=== PATIENT | female | born 1965 | race African-American/Black ===

== ENCOUNTER 2018-11-21 09:07 | Emergency (ER) | payer MEDICAID ==
[~2018-11-21] VITALS: Ht 165.1 cm; Wt 76.7 kg
[2018-11-21 09:28] VITALS: BP 143/85
[2018-11-21] MEDS ORDERED: methylPREDNISolone SOD SUCC 125 MG/2 ML VL IM ONE (10:30)
[2018-11-21] MEDS ORDERED: IPRATROPIUM BROM 0.5 MG/2.5ML INH SOL NEB ONE (10:30)
[2018-11-21] MEDS ORDERED: ALBUTEROL SULF 2.5 MG/0.5ML(0.5%) NEB SOLN NEB ONE (10:30)
== END 2018-11-21 11:28 | disposition home or self-care (01) ==
LOC: ER 09:07
DX: J45.901 Unspecified asthma with (acute) exacerbation (principal); Z76.0 Encounter for issue of repeat prescription
CPT/HCPCS: 71046; 94640; 96372; 99283; J2930; J7611; J7644

== ENCOUNTER 2018-11-30 07:19 | Emergency (ER) | payer MEDICAID ==
[~2018-11-30] VITALS: Ht 165.1 cm; Wt 77.1 kg
[2018-11-30 08:34] VITALS: BP 138/47
[2018-11-30] MEDS ORDERED: methylPREDNISolone SOD SUCC 125 MG/2 ML VL IV ONE (08:45)
[2018-11-30] MEDS ORDERED: IPRATROPIUM BROM 0.5 MG/2.5ML INH SOL NEB ONE (08:45)
[2018-11-30] MEDS ORDERED: ALBUTEROL SULF 2.5 MG/0.5ML(0.5%) NEB SOLN NEB ONE (08:45)
[2018-11-30] MEDS ORDERED: AZITHROMYCIN 500MG/ 250ML 250 ML IV ONE (08:45)
[2018-11-30 09:21] LABS: Urine Bacteria FEW /hpf (None Seen); Urine Blood Negative /uL (Negative); Urine Specific Gravity 1.014 (1.001-1.035); Urine WBC 1 /hpf (0 - 5)
[2018-11-30 09:21] LABS: Basophils # (auto) 0.1 uL; Basophils % (auto) 1.2 % (0.0-2.0); Eosinophils # (auto) 0.6 uL; Eosinophils % (auto) 7.5 % (0.0-7.0); Hematocrit 37.4 % (36.0-46.0); Hemoglobin 12.3 g/dL (12.2-16.2); Lymphocytes # (auto) 1.9 uL; Lymphocytes % (auto) 25.8 % (10.0-50.0); Mean Corpuscular Hemoglobin 28.3 pg (28.0-32.0); Mean Corpuscular Volume 85.9 fL (80.0-100.0); Monocytes # (auto) 0.5 uL; Monocytes % (auto) 6.8 % (0.0-12.0); Neutrophils # (auto) 4.3 uL; Neutrophils % (auto) 58.7 % (37.0-80.0); Nucleated Red Blood Cells % 0.1 %; Platelet Count (auto) 245 10^3/uL (140-450); Red Blood Cells 4.35 10^6/uL (4.0-5.20); Red Cell Distribution Width 17.1 % (11.8-14.3); White Blood Cell 7.4 10^3/uL (4.4-10.8)
[2018-11-30 09:36] LABS: Albumin 3.1 g/dL (3.4-5.0); Anion Gap 4 (5-15); Blood Urea Nitrogen 10 mg/dL (7-18); Calcium 8.7 mg/dL (8.5-10.1); Carbon Dioxide 32 mmol/L (21-32); Chloride 106 mmol/L (98-107); Glucose 93 mg/dL (74-106); Magnesium 2.3 mg/dL (1.6-2.6); Potassium 3.7 mmol/L (3.5-5.1); Sodium 142 mmol/L (136-145)
[2018-11-30 09:42] LABS: Alanine Aminotransferase 15 U/L (13-56); Alkaline Phosphatase 49 U/L (45-117); Aspartate Aminotransferase 10 U/L (15-37); BUN/Creatinine Ratio 11.6; Bilirubin, Total 0.3 mg/dL (0.2-1.0); GFR African American > 60 mL/min; GFR Non-African American > 60 mL/min; Total Protein 6.8 g/dL (6.4-8.2)
== END 2018-11-30 11:09 | disposition home or self-care (01) ==
LOC: ER 07:19
DX: J45.901 Unspecified asthma with (acute) exacerbation (principal); J20.9 Acute bronchitis, unspecified; E46 Unspecified protein-calorie malnutrition; Z68.28 Body mass index [BMI] 28.0-28.9, adult; Z90.49 Acquired absence of other specified parts of digestive tract
CPT/HCPCS: 36415; 71046; 80053; 81001; 83735; 84484; 85025; 94640; 94761; 96365; 96366; 96375; 99284; J0456; J2930; J7030; J7611; J7644

== ENCOUNTER 2018-12-05 20:43 | Emergency (ER) | payer MEDICAID ==
[~2018-12-05] VITALS: Ht 165.1 cm; Wt 77.1 kg
[2018-12-05 20:50] VITALS: BP 150/77
[2018-12-05 21:27] LABS: Basophils # (auto) 0.1 uL; Basophils % (auto) 0.5 % (0.0-2.0); Eosinophils # (auto) 0 uL; Eosinophils % (auto) 0.1 % (0.0-7.0); Hematocrit 39.8 % (36.0-46.0); Hemoglobin 12.9 g/dL (12.2-16.2); Lymphocytes # (auto) 2.4 uL; Lymphocytes % (auto) 15.2 % (10.0-50.0); Mean Corpuscular Hemoglobin 27.7 pg (28.0-32.0); Mean Corpuscular Hgb Conc. 32.3 g/dL (32.0-36.0); Mean Corpuscular Volume 85.7 fL (80.0-100.0); Monocytes # (auto) 0.6 uL; Monocytes % (auto) 3.8 % (0.0-12.0); Neutrophils # (auto) 12.7 uL; Neutrophils % (auto) 80.4 % (37.0-80.0); Nucleated Red Blood Cells % 0.1 %; Platelet Count (auto) 277 10^3/uL (140-450); Red Blood Cells 4.64 10^6/uL (4.0-5.20); Red Cell Distribution Width 17.5 % (11.8-14.3); White Blood Cell 15.8 10^3/uL (4.4-10.8)
[2018-12-05 21:39] LABS: Albumin 3.6 g/dL (3.4-5.0); Calcium 9.1 mg/dL (8.5-10.1); Potassium 3.6 mmol/L (3.5-5.1)
[2018-12-05 21:42] LABS: BUN/Creatinine Ratio 15.7; Bilirubin, Total 0.3 mg/dL (0.2-1.0)
[2018-12-05] MEDS ORDERED: IPRATROPIUM BROM 0.5 MG/2.5ML INH SOL NEB ONE (22:15)
[2018-12-05] MEDS ORDERED: cefTRIAXone SOD 1,000 MG VL IM ONE (22:15)
[2018-12-05] MEDS ORDERED: ALBUTEROL SULF 2.5 MG/0.5ML(0.5%) NEB SOLN NEB ONE (22:15)
[2018-12-05] MEDS ORDERED: methylPREDNISolone SOD SUCC 125 MG/2 ML VL IM ONE (22:15)
== END 2018-12-05 23:09 | disposition home or self-care (01) ==
LOC: ER 20:49
DX: J45.909 Unspecified asthma, uncomplicated (principal); J02.9 Acute pharyngitis, unspecified; R51 Headache
CPT/HCPCS: 36415; 71046; 80053; 85025; 94640; 96372; 99284; J0696; J2930; J7611; J7644

== ENCOUNTER 2018-12-19 19:31 | Emergency (ER) | payer MEDICAID ==
[~2018-12-19] VITALS: Ht 165.1 cm; Wt 77.1 kg
[2018-12-19] MEDS ORDERED: ALBUTEROL SULF 2.5 MG/0.5ML(0.5%) NEB SOLN NEB ONE (20:00)
[2018-12-19] MEDS ORDERED: IPRATROPIUM BROM 0.5 MG/2.5ML INH SOL NEB ONE (20:00)
[2018-12-19] MEDS ORDERED: ALBUTEROL SULF 2.5 MG/0.5ML(0.5%) NEB SOLN ONE (20:26)
[2018-12-19] MEDS ORDERED: IPRATROPIUM BROM 0.5 MG/2.5ML INH SOL HHN ONE (20:30)
[2018-12-19] MEDS ORDERED: SODIUM CHLORIDE 0.9% 500 ML IV ONE (20:30)
[2018-12-19] MEDS ORDERED: ALBUTEROL SULF 2.5 MG/0.5ML(0.5%) NEB SOLN HHN ONE (20:30)
[2018-12-19] MEDS ORDERED: methylPREDNISolone SOD SUCC 125 MG/2 ML VL IV ONE (20:30)
[2018-12-19 21:24] LABS: Basophils # (auto) 0 uL; Basophils % (auto) 0.4 % (0.0-2.0); Eosinophils # (auto) 0.8 uL; Eosinophils % (auto) 7.4 % (0.0-7.0); Hematocrit 39.8 % (36.0-46.0); Hemoglobin 12.3 g/dL (12.2-16.2); Lymphocytes # (auto) 3.8 uL; Lymphocytes % (auto) 37.6 % (10.0-50.0); Mean Corpuscular Hemoglobin 27.8 pg (28.0-32.0); Mean Corpuscular Hgb Conc. 30.9 g/dL (32.0-36.0); Monocytes # (auto) 0.6 uL; Monocytes % (auto) 5.5 % (0.0-12.0); Neutrophils % (auto) 49.1 % (37.0-80.0); Nucleated Red Blood Cells % 0.1 %; Platelet Count (auto) 280 10^3/uL (140-450); Red Blood Cells 4.43 10^6/uL (4.0-5.20); Red Cell Distribution Width 18.6 % (11.8-14.3); White Blood Cell 10.2 10^3/uL (4.4-10.8)
[2018-12-19 21:29] LABS: Albumin 3.4 g/dL (3.4-5.0); BUN/Creatinine Ratio 13.3; Calcium 8.8 mg/dL (8.5-10.1); Potassium 4.1 mmol/L (3.5-5.1)
[2018-12-19 21:32] LABS: Bilirubin, Total 0.4 mg/dL (0.2-1.0); Total Protein 7.2 g/dL (6.4-8.2)
[2018-12-19 22:54] VITALS: BP 142/70
== END 2018-12-20 00:20 | disposition home or self-care (01) ==
LOC: ER 19:33
DX: J45.901 Unspecified asthma with (acute) exacerbation (principal); Z90.89 Acquired absence of other organs
CPT/HCPCS: 36415; 71046; 80053; 85025; 93005; 94640; 94761; 96374; 99284; J2930; J7611; J7644

== ENCOUNTER 2018-12-26 16:49 | Emergency (ER) | payer MEDICAID ==
[~2018-12-26] VITALS: Ht 165.1 cm; Wt 77.1 kg
[2018-12-26] MEDS ORDERED: methylPREDNISolone SOD SUCC 125 MG/2 ML VL IV ONE (17:15)
[2018-12-26] MEDS ORDERED: ALBUTEROL SULF 2.5 MG/0.5ML(0.5%) NEB SOLN HHN ONE (17:15)
[2018-12-26] MEDS ORDERED: IPRATROPIUM BROM 0.5 MG/2.5ML INH SOL HHN ONE (17:15)
[2018-12-26 17:57] LABS: Basophils # (auto) 0.1 uL; Basophils % (auto) 1.3 % (0.0-2.0); Eosinophils # (auto) 0.5 uL; Eosinophils % (auto) 6.9 % (0.0-7.0); Hematocrit 39.2 % (36.0-46.0); Hemoglobin 12.5 g/dL (12.2-16.2); Lymphocytes # (auto) 2.4 uL; Lymphocytes % (auto) 29.7 % (10.0-50.0); Mean Corpuscular Hemoglobin 27.9 pg (28.0-32.0); Mean Corpuscular Hgb Conc. 31.8 g/dL (32.0-36.0); Mean Corpuscular Volume 87.8 fL (80.0-100.0); Monocytes # (auto) 0.6 uL; Monocytes % (auto) 7.1 % (0.0-12.0); Neutrophils # (auto) 4.4 uL; Platelet Count (auto) 249 10^3/uL (140-450); Red Blood Cells 4.46 10^6/uL (4.0-5.20); Red Cell Distribution Width 18.3 % (11.8-14.3); White Blood Cell 7.9 10^3/uL (4.4-10.8)
[2018-12-26 18:09] LABS: Albumin 3.5 g/dL (3.4-5.0); Anion Gap 6 (5-15); Blood Urea Nitrogen 5 mg/dL (7-18); Calcium 8.7 mg/dL (8.5-10.1); Carbon Dioxide 26 mmol/L (21-32); Chloride 106 mmol/L (98-107); Glucose 80 mg/dL (74-106); Magnesium 2.2 mg/dL (1.6-2.6); Potassium 3.3 mmol/L (3.5-5.1); Sodium 138 mmol/L (136-145)
[2018-12-26 18:16] LABS: Alanine Aminotransferase 18 U/L (13-56); Alkaline Phosphatase 48 U/L (45-117); Aspartate Aminotransferase 13 U/L (15-37); BUN/Creatinine Ratio 6.2; Bilirubin, Total 0.3 mg/dL (0.2-1.0); GFR African American 95 mL/min; GFR Non-African American 79 mL/min; Total Protein 7.5 g/dL (6.4-8.2)
[2018-12-26 19:50] VITALS: BP 140/60
== END 2018-12-26 19:59 | disposition home or self-care (01) ==
LOC: EDBD 16:49 → ER 16:54
DX: J45.909 Unspecified asthma, uncomplicated (principal)
CPT/HCPCS: 36415; 71045; 80053; 83735; 83880; 84484; 85025; 94761; 99284; J7611; J7644

== ENCOUNTER 2018-12-28 04:19 | Inpatient (IN) | payer MEDICAID | END 2018-12-30 16:30 | disposition home or self-care (01) | LOC: ER 04:19 → OVERFLOW 12:15 → WEST WING 17:51 | DX: J45.901 Unspecified asthma with (acute) exacerbation (principal); E44.1 Mild protein-calorie malnutrition; I10 Essential (primary) hypertension ==

== ENCOUNTER 2019-01-31 20:40 | Emergency (ER) | payer MEDICAID ==
[~2019-01-31] VITALS: Ht 165.1 cm; Wt 77.1 kg
[2019-01-31] MEDS ORDERED: IPRATROPIUM BROM 0.5 MG/2.5ML INH SOL NEB ONE (21:00)
[2019-01-31] MEDS ORDERED: ALBUTEROL SULF 2.5 MG/0.5ML(0.5%) NEB SOLN NEB ONE (21:00)
[2019-01-31 21:38] LABS: Hematocrit 38.7 % (36.0-46.0); Hemoglobin 12.4 g/dL (12.2-16.2); Mean Corpuscular Hgb Conc. 32.1 g/dL (32.0-36.0); Mean Corpuscular Volume 87.1 fL (80.0-100.0); Platelet Count (auto) 214 10^3/uL (140-450); Red Blood Cells 4.44 10^6/uL (4.0-5.20); Red Cell Distribution Width 17.1 % (11.8-14.3); White Blood Cell 6.4 10^3/uL (4.4-10.8)
[2019-01-31 21:41] LABS: Basophils % (manual) 0 (0.0-2.0); Blast Cells 0; Metamyelocytes % 0; Myelocytes % 0; Promyelocytes % 0; Reactive Lymphocytes 0
[2019-01-31 21:51] LABS: Alanine Aminotransferase 16 U/L (13-56); Albumin 3.6 g/dL (3.4-5.0); Anion Gap 6 (5-15); Aspartate Aminotransferase 13 U/L (15-37); BUN/Creatinine Ratio 12.5; Blood Urea Nitrogen 12 mg/dL (7-18); Carbon Dioxide 27 mmol/L (21-32); Chloride 110 mmol/L (98-107); GFR African American 78 mL/min; GFR Non-African American 65 mL/min; Glucose 86 mg/dL (74-106); Magnesium 2.2 mg/dL (1.6-2.6); Potassium 3.6 mmol/L (3.5-5.1); Sodium 143 mmol/L (136-145)
[2019-01-31 21:54] LABS: Partial Thromboplastin Time 25.9 sec (23.78-33.04); Prothrombin Time 10.7 sec (9.27-12.13)
[2019-01-31 21:57] LABS: Alkaline Phosphatase 53 U/L (45-117); Bilirubin, Total 0.3 mg/dL (0.2-1.0); Total Protein 7.9 g/dL (6.4-8.2)
[2019-01-31 22:48] LABS: Band Neutrophils % (manual) 2; Eosinophils % (manual) 18 (0-7); Monocytes % (manual) 4 (0-12)
[2019-01-31 22:49] LABS: Lymphocytes % (manual) 38 (10.0-50.0)
[2019-02-01] MEDS ORDERED: IPRATROPIUM BROM 0.5 MG/2.5ML INH SOL NEB ONE ×2 (02:15→06:15)
[2019-02-01] MEDS ORDERED: ALBUTEROL SULF 2.5 MG/0.5ML(0.5%) NEB SOLN NEB ONE ×2 (02:15→06:15)
[2019-02-01] MEDS ORDERED: methylPREDNISolone SOD SUCC 125 MG/2 ML VL IV ONE (04:30)
[2019-02-01 06:00] VITALS: BP 148/98
== END 2019-02-01 05:28 | disposition home or self-care (01) ==
LOC: ER 20:46
DX: J45.901 Unspecified asthma with (acute) exacerbation (principal)
CPT/HCPCS: 36415; 71046; 80053; 83735; 84484; 85007; 85027; 85610; 85730; 93005; 94640; 96374; 99284; J2930; J7611; J7644

== ENCOUNTER 2019-02-09 22:00 | Emergency (ER) | payer MEDICAID ==
[~2019-02-09] VITALS: Ht 165.1 cm; Wt 77.1 kg
[2019-02-09 23:31] LABS: Hematocrit 39.1 % (36.0-46.0); Hemoglobin 12.6 g/dL (12.2-16.2); Mean Corpuscular Hemoglobin 27.8 pg (28.0-32.0); Mean Corpuscular Hgb Conc. 32.2 g/dL (32.0-36.0); Mean Corpuscular Volume 86.2 fL (80.0-100.0); Platelet Count (auto) 290 10^3/uL (140-450); Red Blood Cells 4.54 10^6/uL (4.0-5.20); Red Cell Distribution Width 16.9 % (11.8-14.3); White Blood Cell 6.9 10^3/uL (4.4-10.8)
[2019-02-09 23:32] LABS: Basophils % (manual) 0 (0.0-2.0); Blast Cells 0; Metamyelocytes % 0; Myelocytes % 0; Promyelocytes % 0; Reactive Lymphocytes 0
[2019-02-09] MEDS ORDERED: SODIUM CHLORIDE 0.9% 1,000 ML IV ONE (23:45)
[2019-02-09] MEDS ORDERED: IPRATROPIUM BROM 0.5 MG/2.5ML INH SOL NEB ONE (23:45)
[2019-02-09] MEDS ORDERED: methylPREDNISolone SOD SUCC 125 MG/2 ML VL IV ONE (23:45)
[2019-02-09] MEDS ORDERED: ALBUTEROL SULF 2.5 MG/0.5ML(0.5%) NEB SOLN NEB ONE (23:45)
[2019-02-09] MEDS ORDERED: TERBUTALINE SULFATE 1 MG/ML 1ML VIAL SC ONE (23:45)
[2019-02-09 23:47] LABS: Albumin 3.7 g/dL (3.4-5.0); Anion Gap 7 (5-15); Blood Urea Nitrogen 9 mg/dL (7-18); Carbon Dioxide 29 mmol/L (21-32); Chloride 104 mmol/L (98-107); Glucose 100 mg/dL (74-106); Magnesium 2.3 mg/dL (1.6-2.6); Potassium 3.1 mmol/L (3.5-5.1); Sodium 140 mmol/L (136-145)
[2019-02-09 23:49] LABS: Alanine Aminotransferase 19 U/L (13-56); Aspartate Aminotransferase 11 U/L (15-37); BUN/Creatinine Ratio 9.5; GFR African American 79 mL/min; GFR Non-African American 66 mL/min
[2019-02-09 23:53] LABS: Alkaline Phosphatase 48 U/L (45-117); Bilirubin, Total 0.4 mg/dL (0.2-1.0); Total Protein 7.6 g/dL (6.4-8.2)
[2019-02-10 01:32] LABS: Band Neutrophils % (manual) 1; Eosinophils % (manual) 18 (0-7); Lymphocytes % (manual) 32 (10.0-50.0); Monocytes % (manual) 5 (0-12)
[2019-02-10] MEDS ORDERED: POTASSIUM CHL 10% (20 MEQ/15ML) 15ml ORAL SOLN PO ONE (03:15)
[2019-02-10] MEDS ORDERED: ALBUTEROL SULF 2.5 MG/0.5ML(0.5%) NEB SOLN NEB ONE (03:30)
[2019-02-10] MEDS ORDERED: IPRATROPIUM BROM 0.5 MG/2.5ML INH SOL NEB ONE (03:30)
[2019-02-10 03:35] VITALS: BP 122/71
[2019-02-10 03:39] LABS: Urine Bacteria FEW /hpf (None Seen); Urine Blood Negative /uL (Negative); Urine Mucus FEW (None Seen); Urine Specific Gravity 1.015 (1.001-1.035); Urine WBC 1 /hpf (0 - 5)
[2019-02-10] MEDS ORDERED: POTASSIUM CHL 10% (20 MEQ/15ML) 15ml ORAL SOLN ONE ×2 (03:51→03:53)
== END 2019-02-10 04:34 | disposition home or self-care (01) ==
LOC: ER 22:00
DX: J45.901 Unspecified asthma with (acute) exacerbation (principal)
CPT/HCPCS: 36415; 71045; 80053; 81001; 83735; 84484; 85007; 85027; 93005; 94640; 94761; 96372; 96374; 99284; J2930; J3105; J7030; J7611; J7644

== ENCOUNTER 2019-05-01 07:48 | Emergency (ER) | payer MEDICAID ==
[~2019-05-01] VITALS: Ht 165.1 cm; Wt 83.9 kg
[~2019-05-01 07:48] MED LIST: ALBUAER3 IN
[2019-05-01 08:26] VITALS: BP 128/70
[2019-05-01] MEDS ORDERED: IPRATROPIUM BROM 0.5 MG/2.5ML INH SOL NEB ONE (08:45)
[2019-05-01] MEDS ORDERED: ALBUTEROL SULF 2.5 MG/0.5ML(0.5%) NEB SOLN NEB ONE (08:45)
== END 2019-05-01 09:43 | disposition home or self-care (01) ==
LOC: ER 07:54
DX: R06.02 Shortness of breath (principal)
CPT/HCPCS: 71046; 93005; 94640; 99283; J7611; J7644

== ENCOUNTER 2019-05-08 11:08 | Inpatient (IN) | payer MEDICAID ==
[~2019-05-08] VITALS: Ht 165.1 cm; Wt 90.0 kg
[2019-05-08] MEDS ORDERED: IPRATROPIUM BROM 0.5 MG/2.5ML INH SOL NEB ONE ×2 (11:30→13:15)
[2019-05-08] MEDS ORDERED: ALBUTEROL SULF 2.5 MG/0.5ML(0.5%) NEB SOLN NEB ONE ×2 (11:30→13:15)
[2019-05-08 12:14] LABS: Hematocrit 37.8 % (36.0-46.0); Hemoglobin 12.1 g/dL (12.2-16.2); Mean Corpuscular Hemoglobin 27.2 pg (28.0-32.0); Mean Corpuscular Volume 85.1 fL (80.0-100.0); Platelet Count (auto) 276 10^3/uL (140-450); Red Blood Cells 4.45 10^6/uL (4.0-5.20); Red Cell Distribution Width 17.4 % (11.8-14.3); White Blood Cell 7.2 10^3/uL (4.4-10.8)
[2019-05-08] MEDS ORDERED: methylPREDNISolone SOD SUCC 125 MG/2 ML VL IV ONE (12:15)
[2019-05-08 12:17] LABS: Band Neutrophils % (manual) 0; Basophils % (manual) 0 (0.0-2.0); Blast Cells 0; Metamyelocytes % 0; Myelocytes % 0; Promyelocytes % 0; Reactive Lymphocytes 0
[2019-05-08] MEDS ORDERED: methylPREDNISolone SOD SUCC 125 MG/2 ML VL ONE (12:17)
[2019-05-08 12:42] LABS: Calcium 8.9 mg/dL (8.5-10.1); Chloride 107 mmol/L (98-107); Potassium 3.7 mmol/L (3.5-5.1); Sodium 141 mmol/L (136-145)
[2019-05-08 12:51] LABS: Alanine Aminotransferase 18 U/L (13-56); Albumin 3.5 g/dL (3.4-5.0); Alkaline Phosphatase 46 U/L (45-117); Anion Gap 6 (5-15); Aspartate Aminotransferase 8 U/L (15-37); BUN/Creatinine Ratio 9.9; Bilirubin, Total 0.3 mg/dL (0.2-1.0); Blood Urea Nitrogen 9 mg/dL (7-18); Carbon Dioxide 28 mmol/L (21-32); GFR African American 83 mL/min; GFR Non-African American 69 mL/min; Glucose 86 mg/dL (74-106); Total Protein 7.5 g/dL (6.4-8.2)
[2019-05-08 13:07] LABS: Eosinophils % (manual) 12 (0-7); Lymphocytes % (manual) 22 (10.0-50.0); Monocytes % (manual) 4 (0-12)
[2019-05-08] MEDS ORDERED: AZITHROMYCIN 500MG/ 250ML 250 ML IV ONE (13:15)
[2019-05-08] MEDS ORDERED: cefTRIAXone 1GM/50ML D5W 50 ML IV ONE (13:15)
[2019-05-08] MEDS ORDERED: MORPHINE SULF INJ 2 MG/ML SYRINGE 1ML IV PRN ×2 (14:00)
[2019-05-08] MEDS ORDERED: ACETAMINOPHEN 500 MG TAB PO PRN (14:00)
[2019-05-08] MEDS ORDERED: ONDANSETRON HCL 4 MG/2 ML VIAL IV PRN (14:00)
[2019-05-08] MEDS ORDERED: HYDROcodone-ACET 5/325MG TAB PO PRN (14:00)
[2019-05-08] MEDS ORDERED: NITROGLYCERIN 0.4 MG SL TAB SL PRN (14:00)
[2019-05-08] MEDS ORDERED: FUROSEMIDE 40 MG TAB PO ONE (14:00)
[2019-05-08] MEDS ORDERED: FAMOTIDINE 20 MG TAB PO ONE (14:15)
[2019-05-08 15:01] VITALS: BP 133/75
--- NOTE | 2019-05-08 15:18 | NUR ---
MS admit from ER [facility] admitted to room 246B after SBAR received. Patient oriented to Keesha Cee, primary RN, unit, room, bed, and unit policies regarding patient care and visiting hours. Patient weighed by bed scale and encouraged to call if they need something. All questions and concerns addressed, patient verbalized understanding. Bed locked in the position. Bed rails up x2. Call light in reach.
[2019-05-08] MEDS ORDERED: MONT10TA23 PO (16:49)
[2019-05-08 16:59] VITALS: BP 107/57
[2019-05-08] MEDS: ALBUTEROL SULF 2.5 MG/0.5ML(0.5%) NEB SOLN NEB SCH (18:27)
[2019-05-08] MEDS: IPRATROPIUM BROM 0.5 MG/2.5ML INH SOL NEB SCH (18:27)
[2019-05-08] MEDS: BUDESONIDE (INHALATION) 0.5 MG/2 ML NEB NEB SCH (18:27)
--- NOTE | 2019-05-08 19:00 | NUR ---
OPENING NOTE Received report from day shift RN. Patient is A&O X's 4 with no s/s of distress. Patient reports no SOB or pain at this time. Patient's boyfriend is currently at bedside. Educated patient on POC and to use call light when in need of assistance. Patient verbalized understanding. Bed is in lowest/locked position with side rails up X's 2 and call light is within reach of patient. Will continue to monitor for changes and round hourly/PRN.
--- NOTE | 2019-05-08 19:00 | NUR ---
CLOSING NOTE Patient is awake and alert. No S/S of distress/SOB or pain. Bed locked in the lowest position. Bed rails up x2. Call light in reach. Endorsed care to night nurse.
[2019-05-08 22:00] VITALS: BP 126/69
--- NOTE | 2019-05-09 01:20 | NUR ---
PAGED RT Patient is reporting SOB. O2 is currently at 91% on room air. Some expiratory wheezing heard.
[2019-05-09] MEDS: IPRATROPIUM BROM 0.5 MG/2.5ML INH SOL NEB SCH ×4 (01:24→17:29)
[2019-05-09] MEDS: ALBUTEROL SULF 2.5 MG/0.5ML(0.5%) NEB SOLN NEB SCH ×4 (01:24→17:29)
--- NOTE | 2019-05-09 01:24 | NUR ---
PAGED HOSPITALIST Paged hospitalist for patient's increased SOB.
--- NOTE | 2019-05-09 01:30 | NUR ---
RT AT BEDSIDE Gave breathing treatment. Patient reports feeling much better
--- NOTE | 2019-05-09 04:07 | NUR ---
PAGED HOSPITALIST regarding breathing treatments
[2019-05-09 05:00] VITALS: BP 124/77
--- NOTE | 2019-05-09 05:11 | NUR ---
RECEIVED CALL BACK FROM HOSPITALIST New orders given. Will continue care
[2019-05-09] MEDS: BUDESONIDE (INHALATION) 0.5 MG/2 ML NEB NEB SCH ×2 (06:02→17:29)
--- NOTE | 2019-05-09 06:22 | NUR ---
Respiratory note: PATIENT SEEN FOR SCHEDULED MED-NEB TX AND WAS FOUND ON ROOM AIR WITH SPO2 OF 88%. MED-MEN WAS GIVEN AND PATIENT WAS PLACED ON 2LPM NASAL CANNULA POST TX. SPO2 MAINTAINED AT 94% ON 2LPM NASAL CANNULA. GISSELL WHITING MADE AWARE OF O2 THERAPY CHANGE.
--- NOTE | 2019-05-09 06:40 | NUR ---
RT RT informed me that patient had O2 Sat at 88% on room air. He placed her on 2L N.C after breathing treatment and she is now at 97%. Will continue to monitor.
[2019-05-09 07:06] LABS: Basophils # (auto) 0 uL; Basophils % (auto) 0.2 % (0.0-2.0); Eosinophils # (auto) 0 uL; Hematocrit 36.1 % (36.0-46.0); Hemoglobin 11.9 g/dL (12.2-16.2); Lymphocytes # (auto) 1.2 uL; Lymphocytes % (auto) 11.5 % (10.0-50.0); Mean Corpuscular Hemoglobin 27.7 pg (28.0-32.0); Mean Corpuscular Hgb Conc. 33.1 g/dL (32.0-36.0); Mean Corpuscular Volume 83.7 fL (80.0-100.0); Monocytes # (auto) 0.5 uL; Neutrophils # (auto) 8.7 uL; Neutrophils % (auto) 83.3 % (37.0-80.0); Platelet Count (auto) 301 10^3/uL (140-450); Red Blood Cells 4.31 10^6/uL (4.0-5.20); Red Cell Distribution Width 17.3 % (11.8-14.3); White Blood Cell 10.5 10^3/uL (4.4-10.8)
[2019-05-09 07:22] LABS: Anion Gap 10 (5-15); BUN/Creatinine Ratio 14.3; Blood Urea Nitrogen 13 mg/dL (7-18); Calcium 8.6 mg/dL (8.5-10.1); Carbon Dioxide 24 mmol/L (21-32); Chloride 109 mmol/L (98-107); GFR African American 83 mL/min; GFR Non-African American 69 mL/min; Glucose 125 mg/dL (74-106); Potassium 4.1 mmol/L (3.5-5.1); Sodium 143 mmol/L (136-145)
--- NOTE | 2019-05-09 08:00 | NUR ---
Opening Shift Note Assumed care of patient, awake and alert. No S/S of distress/SOB or pain. Instructed on POC and to call for assist PRN, will continue to monitor for changes Q1hr and PRN.
[2019-05-09 09:00] VITALS: BP 129/70
[2019-05-09] MEDS: methylPREDNISolone SOD SUCC 40 MG/ML VL IV SCH ×2 (10:54→21:19)
[2019-05-09] MEDS: cefTRIAXone 1GM/50ML D5W 50 ML IV SCH (10:55)
[2019-05-09] MEDS: FAMOTIDINE 20 MG TAB PO SCH (10:55)
--- NOTE | 2019-05-09 11:30 | NUR ---
IV removal IV line to right hand DC'd with clean sterile technique, catheter fully intact. Pressure dressing applied to site. Patient tolerated well.
--- NOTE | 2019-05-09 11:35 | NUR ---
IV insertion IV access obtained, via clean sterile technique by inserting 20 gauge catheter at left FA after 1 attempt by student sample checker. IV secured properly. No trauma to site. Patient tolerated well.
[2019-05-09 13:00] VITALS: BP 125/55
[2019-05-09] MEDS: AZITHROMYCIN 500MG/ 250ML 250 ML IV SCH (13:36)
[2019-05-09 16:35] VITALS: BP 112/61
--- NOTE | 2019-05-09 17:28 | NUR ---
RT PAGED Patient requests breathing treatment. RT paged. Patient on O2 via N/C. Call light in reach.
--- NOTE | 2019-05-09 19:13 | NUR ---
Respiratory note: PT NOT IN BED AT THIS TIME, PT USING RESTROOM
--- NOTE | 2019-05-09 20:03 | NUR ---
RECEIVED PT FROM DAY RN POC REVIEWED
[2019-05-09] MEDS: ALBUTEROL SULF 2.5 MG/0.5ML(0.5%) NEB SOLN NEB PRN (21:15)
[2019-05-09] MEDS: IPRATROPIUM BROM 0.5 MG/2.5ML INH SOL NEB PRN (21:15)
[2019-05-09 22:08] VITALS: BP 114/57
[2019-05-10] MEDS: IPRATROPIUM BROM 0.5 MG/2.5ML INH SOL NEB PRN ×2 (03:41→22:05)
[2019-05-10] MEDS: ALBUTEROL SULF 2.5 MG/0.5ML(0.5%) NEB SOLN NEB PRN ×2 (03:41→22:05)
[2019-05-10 05:30] VITALS: BP 155/74
[2019-05-10] MEDS: IPRATROPIUM BROM 0.5 MG/2.5ML INH SOL NEB SCH ×3 (06:37→18:22)
[2019-05-10] MEDS: BUDESONIDE (INHALATION) 0.5 MG/2 ML NEB NEB SCH ×2 (06:37→18:24)
[2019-05-10] MEDS: ALBUTEROL SULF 2.5 MG/0.5ML(0.5%) NEB SOLN NEB SCH ×3 (06:37→18:22)
[2019-05-10 07:07] LABS: Basophils # (auto) 0 uL; Basophils % (auto) 0.1 % (0.0-2.0); Eosinophils # (auto) 0 uL; Hematocrit 34.9 % (36.0-46.0); Hemoglobin 11.3 g/dL (12.2-16.2); Lymphocytes # (auto) 1.2 uL; Mean Corpuscular Hemoglobin 27.6 pg (28.0-32.0); Mean Corpuscular Hgb Conc. 32.6 g/dL (32.0-36.0); Mean Corpuscular Volume 84.6 fL (80.0-100.0); Monocytes # (auto) 0.3 uL; Monocytes % (auto) 2.6 % (0.0-12.0); Neutrophils # (auto) 11.4 uL; Neutrophils % (auto) 88.3 % (37.0-80.0); Platelet Count (auto) 273 10^3/uL (140-450); Red Blood Cells 4.12 10^6/uL (4.0-5.20); Red Cell Distribution Width 17.4 % (11.8-14.3)
[2019-05-10 07:24] LABS: Potassium 4.2 mmol/L (3.5-5.1)
[2019-05-10 07:34] LABS: Albumin 3.1 g/dL (3.4-5.0); Bilirubin, Total 0.1 mg/dL (0.2-1.0); Calcium 8.9 mg/dL (8.5-10.1)
--- NOTE | 2019-05-10 07:35 | NUR ---
report given to am nurse poc reviewed
--- NOTE | 2019-05-10 08:00 | NUR ---
Opening Shift Note Assumed care of patient, awake and alert, sitting up in bed on cell phone. Patient consumed most of breakfast tray. No S/S of distress or pain. Instructed on POC and to call for assist PRN, will continue to monitor for changes Q1hr and PRN.
[2019-05-10 08:58] VITALS: BP 117/55
[2019-05-10] MEDS: FAMOTIDINE 20 MG TAB PO SCH (09:10)
[2019-05-10] MEDS: cefTRIAXone 1GM/50ML D5W 50 ML IV SCH (09:10)
[2019-05-10] MEDS: methylPREDNISolone SOD SUCC 40 MG/ML VL IV SCH ×2 (09:11→21:15)
--- NOTE | 2019-05-10 09:25 | NUR ---
MD JENNIFER bradshaw. Plan of care discussed.
[2019-05-10] MEDS: AZITHROMYCIN 500MG/ 250ML 250 ML IV SCH (10:12)
[2019-05-10 12:52] VITALS: BP 140/67
[2019-05-10 16:51] VITALS: BP 118/65
--- NOTE | 2019-05-10 19:50 | NUR ---
OPENING NOTE ASSUMED PT CARE FROM DAY SHIFT NURSE NEGRITA. PT IS A/OX4 LAYING QUIETLY IN BED WITH NO S/S OF DISTRESS. PT IS SLIGHTLY SOB UPON PROLONGED CONVERSATION. PT IS CURRENTLY ON AND OFF O2 2L NC NEEDED AND PT STATES THAT SHE IS AWARE OF WHEN SHE FEELS SOB AND WHEN TO PLACE IT BACK ON. DISCUSSED POC WITH PT. PT STATES THAT SHE WISHES TO HAVE A PRN BREATHING TREATMENT BEFORE BED TO ENSURE SHE GETS A GOOD NIGHTS REST. SAFETY MEASURES MAINTAINED WITH SIDE RAILS UP, BED IN LOWEST POSITION AND CALL LIGHT WITHIN REACH. WILL CONTINUE TO MONITOR FOR CHANGES Q1HR AND PRN.
[2019-05-10 22:00] VITALS: BP 109/61
--- NOTE | 2019-05-11 02:00 | NUR ---
PT REQUESTED PRN BREATHING TX PT STATED THAT SHE FEELS "PLUGGED" IN REGARD TO HER BREATHING, THEREFORE REQUESTED RT TX. RT PAGED FOR PRN TX.
[2019-05-11] MEDS: IPRATROPIUM BROM 0.5 MG/2.5ML INH SOL NEB PRN ×3 (02:12→23:15)
[2019-05-11] MEDS: ALBUTEROL SULF 2.5 MG/0.5ML(0.5%) NEB SOLN NEB PRN ×3 (02:12→23:15)
[2019-05-11 03:25] VITALS: BP 109/61
[2019-05-11 05:13] VITALS: BP 128/67
[2019-05-11] MEDS: ALBUTEROL SULF 2.5 MG/0.5ML(0.5%) NEB SOLN NEB SCH ×3 (06:27→18:24)
[2019-05-11] MEDS: BUDESONIDE (INHALATION) 0.5 MG/2 ML NEB NEB SCH ×2 (06:27→18:24)
[2019-05-11] MEDS: IPRATROPIUM BROM 0.5 MG/2.5ML INH SOL NEB SCH ×3 (06:27→18:24)
[2019-05-11 06:52] LABS: Potassium 4.5 mmol/L (3.5-5.1)
[2019-05-11 06:55] LABS: Basophils # (auto) 0 uL; Basophils % (auto) 0.2 % (0.0-2.0); Eosinophils # (auto) 0 uL; Eosinophils % (auto) 0.3 % (0.0-7.0); Hematocrit 36.2 % (36.0-46.0); Hemoglobin 11.7 g/dL (12.2-16.2); Lymphocytes % (auto) 6.6 % (10.0-50.0); Mean Corpuscular Hemoglobin 27.5 pg (28.0-32.0); Mean Corpuscular Hgb Conc. 32.3 g/dL (32.0-36.0); Mean Corpuscular Volume 85.1 fL (80.0-100.0); Monocytes # (auto) 0.4 uL; Monocytes % (auto) 2.5 % (0.0-12.0); Neutrophils # (auto) 13.6 uL; Neutrophils % (auto) 90.4 % (37.0-80.0); Nucleated Red Blood Cells % 0.1 %; Platelet Count (auto) 277 10^3/uL (140-450); Red Blood Cells 4.25 10^6/uL (4.0-5.20); Red Cell Distribution Width 17.8 % (11.8-14.3)
[2019-05-11 07:01] LABS: Albumin 3.1 g/dL (3.4-5.0); BUN/Creatinine Ratio 15.6; Bilirubin, Total 0.2 mg/dL (0.2-1.0); Calcium 8.5 mg/dL (8.5-10.1); Total Protein 7.1 g/dL (6.4-8.2)
--- NOTE | 2019-05-11 07:30 | NUR ---
Opening Shift Note Assumed care of patient, resting in bed with eyes closed, respirations even and unlabored. No S/S of distress/SOB or pain. POC board updated, will continue to monitor for changes Q1hr and PRN.
[2019-05-11 09:00] VITALS: BP 115/72
--- NOTE | 2019-05-11 09:15 | NUR ---
BEDSIDE Dr Muñoz at bedside.
[2019-05-11] MEDS: FAMOTIDINE 20 MG TAB PO SCH (09:16)
[2019-05-11] MEDS: methylPREDNISolone SOD SUCC 40 MG/ML VL IV SCH ×2 (09:16→21:51)
[2019-05-11] MEDS: cefTRIAXone 1GM/50ML D5W 50 ML IV SCH (09:17)
--- NOTE | 2019-05-11 11:28 | NUR ---
Nutrition Assessment Notes please see attached link for complete assessment Est. Needs ABW 72 [id number] kcal (23-25 kcal/kgBW), 72-79 gms pro (1.0-1.1 gms/kgBW). Will continue to monitor pertinent labs and reassess nutrient need prn Addendum: 05/11/19 at [address] Amended: Links added.
[2019-05-11 13:00] VITALS: BP 106/59
[2019-05-11] MEDS: AZITHROMYCIN 500MG/ 250ML 250 ML IV SCH (13:52)
--- NOTE | 2019-05-11 14:28 | NUR ---
IV removal IV line to left FA DC'd with clean sterile technique, catheter fully intact. Pressure dressing applied to site. Patient tolerated well. NOTE: IV site became swollen, red, and painful.
--- NOTE | 2019-05-11 16:00 | NUR ---
IV insertion IV access obtained, via clean sterile technique by inserting 22 gauge catheter at the right FA after 1 attempt. IV secured properly. No trauma to site. Patient tolerated well.
[2019-05-11 17:47] VITALS: BP 122/59
--- NOTE | 2019-05-11 19:30 | NUR ---
OPENING NOTE Received report from day shift RN. Patient is A&O X's 4 with no s/s of distress noted. Educated patient on POC and to use call light when in need of assistance. Patient verbalized understanding. Bed is in lowest/locked position with side rails up X's 2 and call light is within reach of patient. Will continue to monitor for changes and round hourly/PRN.
[2019-05-11 21:54] VITALS: BP 110/66
--- NOTE | 2019-05-11 22:58 | NUR ---
PAGED RT Patient requesting breathing treatment. She reports some SOB. No distress noted
--- NOTE | 2019-05-12 04:30 | NUR ---
PAGED RT Paged RT. Patient requesting breathing treatment. She reports some SOB. NO distress is noted. O2 level is at 93% on room air
[2019-05-12] MEDS: IPRATROPIUM BROM 0.5 MG/2.5ML INH SOL NEB PRN ×2 (04:41→22:53)
[2019-05-12] MEDS: ALBUTEROL SULF 2.5 MG/0.5ML(0.5%) NEB SOLN NEB PRN ×2 (04:41→22:53)
[2019-05-12 05:31] VITALS: BP 125/73
[2019-05-12] MEDS: IPRATROPIUM BROM 0.5 MG/2.5ML INH SOL NEB SCH ×3 (06:13→18:46)
[2019-05-12] MEDS: BUDESONIDE (INHALATION) 0.5 MG/2 ML NEB NEB SCH ×2 (06:13→18:46)
[2019-05-12] MEDS: ALBUTEROL SULF 2.5 MG/0.5ML(0.5%) NEB SOLN NEB SCH ×3 (06:13→18:45)
[2019-05-12 06:59] LABS: Basophils # (auto) 0 uL; Basophils % (auto) 0.1 % (0.0-2.0); Eosinophils # (auto) 0 uL; Hematocrit 35.6 % (36.0-46.0); Hemoglobin 11.6 g/dL (12.2-16.2); Lymphocytes # (auto) 1.4 uL; Lymphocytes % (auto) 8.9 % (10.0-50.0); Mean Corpuscular Hemoglobin 27.7 pg (28.0-32.0); Mean Corpuscular Hgb Conc. 32.6 g/dL (32.0-36.0); Mean Corpuscular Volume 84.9 fL (80.0-100.0); Monocytes # (auto) 0.7 uL; Monocytes % (auto) 4.2 % (0.0-12.0); Neutrophils # (auto) 13.8 uL; Neutrophils % (auto) 86.8 % (37.0-80.0); Platelet Count (auto) 249 10^3/uL (140-450); Red Blood Cells 4.19 10^6/uL (4.0-5.20); Red Cell Distribution Width 17.6 % (11.8-14.3)
[2019-05-12 07:10] LABS: Albumin 3.1 g/dL (3.4-5.0); Calcium 8.5 mg/dL (8.5-10.1); Potassium 4.5 mmol/L (3.5-5.1)
[2019-05-12 07:14] LABS: BUN/Creatinine Ratio 15.1; Bilirubin, Total 0.4 mg/dL (0.2-1.0); Total Protein 6.8 g/dL (6.4-8.2)
--- NOTE | 2019-05-12 07:25 | NUR ---
CLOSING NOTE Gave report to day shift RN, Mica. Patient is A&O X's 4 with no s/s of distress. Endorsed care
--- NOTE | 2019-05-12 07:40 | NUR ---
OPENING SHIFT NOTE PATIENT IN BED WITH EYES CLOSED BUT AWAKE COMMUNICATING. PATIENT ALERT AND ORIENTED X4. POC DISCUSSED PATIENT VERBALIZED UNDERSTANDING. BOARD UPDATED. BED IS IN LOWEST LOCKED POSITION CALL LIGHT WITH IN REACH. WILL CONTINUE TO MONITOR
[2019-05-12 08:00] VITALS: BP 132/76
--- NOTE | 2019-05-12 09:40 | NUR ---
HOSPITALIST AT BEDSIDE DR GUTIERREZ AT BEDSIDE. WILL FOLLOW ORDERS INSTRUCTED
[2019-05-12] MEDS: cefTRIAXone 1GM/50ML D5W 50 ML IV SCH (09:57)
[2019-05-12] MEDS: methylPREDNISolone SOD SUCC 40 MG/ML VL IV SCH ×2 (09:58→21:56)
[2019-05-12] MEDS: FAMOTIDINE 20 MG TAB PO SCH (09:58)
[2019-05-12] MEDS: AZITHROMYCIN 500MG/ 250ML 250 ML IV SCH (09:58)
[2019-05-12 12:00] VITALS: BP 119/58
[2019-05-12 16:00] VITALS: BP 132/67
--- NOTE | 2019-05-12 18:57 | NUR ---
END OF SHIFT NOTE PATIENT AWAKE AND ALERT WITH FIANCE AT BEDSIDE. PATIENT DENIES ANY DISTRESS OR SOB AT THIS TIME. BED IS IN LOWEST LOCKED POSITION CALL LIGHT WITHIN REACH ENDORSED CARE TO LIAT BORRERO
[2019-05-12 22:00] VITALS: BP 115/77
--- NOTE | 2019-05-12 22:00 | NUR ---
PAGED RT PATIENT REQUESTING BREATHING TREATMENT BEFORE GOING TO SLEEP
--- NOTE | 2019-05-12 22:51 | NUR ---
RT AT BEDSIDE
--- NOTE | 2019-05-13 04:43 | NUR ---
PAGED RT Patient requesting breathing treatment.
[2019-05-13 05:00] VITALS: BP 118/72
[2019-05-13] MEDS: ALBUTEROL SULF 2.5 MG/0.5ML(0.5%) NEB SOLN NEB SCH ×3 (06:27→18:25)
[2019-05-13] MEDS: BUDESONIDE (INHALATION) 0.5 MG/2 ML NEB NEB SCH ×2 (06:27→18:26)
[2019-05-13] MEDS: IPRATROPIUM BROM 0.5 MG/2.5ML INH SOL NEB SCH ×3 (06:27→18:25)
--- NOTE | 2019-05-13 07:00 | NUR ---
OPENING SHIFT NOTE ASSUMED CARE OF THE PATIENT FROM THE VENDER RN. THE PATIENT IS A&OX4, NO SIGNS OR SYMPTOMS OF DISTRESS. EDUCATED THE PATIENT ON POC AND PATIENT VERBALIZED UNDERSTANDING. THE PATIENT'S CALL LIGHT IS WITHIN REACH AND BED IS IN THE LOWEST, LOCKED POSITION. WILL ROUND HOURLY AND CONTINUE TO MONITOR.
[2019-05-13 08:00] VITALS: BP 131/71
[2019-05-13] MEDS: FAMOTIDINE 20 MG TAB PO SCH (09:48)
[2019-05-13] MEDS: AZITHROMYCIN 500MG/ 250ML 250 ML IV SCH (09:48)
[2019-05-13] MEDS: methylPREDNISolone SOD SUCC 40 MG/ML VL IV SCH ×2 (09:48→21:55)
[2019-05-13] MEDS: cefTRIAXone 1GM/50ML D5W 50 ML IV SCH (09:48)
[2019-05-13 16:00] VITALS: BP 131/69
--- NOTE | 2019-05-13 19:10 | NUR ---
Opening Shift Note Assumed care of patient, awake and alert. No S/S of distress/SOB or pain. Instructed on POC and to call for assist PRN, will continue to monitor for changes Q1hr and PRN. Side rails up x2. Bed locked in lowest position. Call light within reach.
[2019-05-13] MEDS: ALBUTEROL SULF 2.5 MG/0.5ML(0.5%) NEB SOLN NEB PRN (21:57)
[2019-05-13] MEDS: IPRATROPIUM BROM 0.5 MG/2.5ML INH SOL NEB PRN (21:57)
[2019-05-13 22:00] VITALS: BP 120/67
[2019-05-14 00:20] VITALS: BP 120/67
[2019-05-14 05:12] VITALS: BP 111/67
[2019-05-14 06:27] LABS: Hemoglobin 12.1 g/dL (12.2-16.2); Mean Corpuscular Hemoglobin 27.7 pg (28.0-32.0); Mean Corpuscular Hgb Conc. 32.7 g/dL (32.0-36.0); Mean Corpuscular Volume 84.9 fL (80.0-100.0); Platelet Count (auto) 225 10^3/uL (140-450); Red Blood Cells 4.36 10^6/uL (4.0-5.20); Red Cell Distribution Width 17.4 % (11.8-14.3); White Blood Cell 13.5 10^3/uL (4.4-10.8)
--- NOTE | 2019-05-14 07:00 | NUR ---
OPENING SHIFT NOTE ASSUMED CARE OF THE PATIENT FROM THE READING ASSISTANT RN. THE PATIENT IS A&OX4, NO SIGNS OR SYMPTOMS OF DISTRESS. EDUCATED THE PATIENT ON POC AND PATIENT VERBALIZED UNDERSTANDING. THE PATIENT'S CALL LIGHT IS WITHIN REACH AND BED IS IN THE LOWEST, LOCKED POSITION. WILL ROUND HOURLY AND CONTINUE TO MONITOR.
--- NOTE | 2019-05-14 07:08 | NUR ---
Endorsed care to day shift RN. Patient in bed with no signs of distress/sob/pain. Patient had no events of distress throughout the shift.
[2019-05-14 07:11] LABS: Band Neutrophils % (manual) 0; Basophils % (manual) 0 (0.0-2.0); Blast Cells 0; Eosinophils % (manual) 0 (0-7); Metamyelocytes % 0; Myelocytes % 0; Promyelocytes % 0; Reactive Lymphocytes 0
[2019-05-14] MEDS: IPRATROPIUM BROM 0.5 MG/2.5ML INH SOL NEB SCH ×2 (07:22→12:05)
[2019-05-14] MEDS: ALBUTEROL SULF 2.5 MG/0.5ML(0.5%) NEB SOLN NEB SCH ×2 (07:22→12:05)
[2019-05-14] MEDS: BUDESONIDE (INHALATION) 0.5 MG/2 ML NEB NEB SCH (07:22)
[2019-05-14 08:00] VITALS: BP_SYST 128; BP_SYST 131; BP_DIAS 66; BP_DIAS 73
[2019-05-14] MEDS: cefTRIAXone 1GM/50ML D5W 50 ML IV SCH (09:42)
[2019-05-14] MEDS: AZITHROMYCIN 500MG/ 250ML 250 ML IV SCH (09:43)
[2019-05-14] MEDS: FAMOTIDINE 20 MG TAB PO SCH (09:43)
[2019-05-14] MEDS: methylPREDNISolone SOD SUCC 40 MG/ML VL IV SCH (09:43)
[2019-05-14 12:00] VITALS: BP 119/54
[2019-05-14 13:30] LABS: Lymphocytes % (manual) 13 (10.0-50.0); Monocytes % (manual) 1 (0-12)
--- NOTE | 2019-05-14 16:45 | NUR ---
Discharge instructions given as ordered. Encourage to follow up with PMD as instructed. All questions and concerns addressed. Patient verbalized understanding. Medication reconciliation form completed and copy given to patient. Home medications held in Pharmacy returned to patient, and needed vaccines given. IV removed with catheter intact, pressure dressing applied.Patient taken to vehicle via wheelchair with all personal belongings, accompanied by staff and family member. No distress noted at time of departure.
== END 2019-05-14 16:45 | disposition home or self-care (01) | DRG 139 ==
LOC: ER 11:11 → OVERFLOW 11:12 → EAST 15:20
PROVIDERS: ADMIT Nurse Practitioner Acute Care; ATTEND Internal Medicine
DX: J18.1 Lobar pneumonia, unspecified organism (principal); J45.901 Unspecified asthma with (acute) exacerbation; E66.9 Obesity, unspecified; Z98.2 Presence of cerebrospinal fluid drainage device; Z68.33 Body mass index [BMI] 33.0-33.9, adult; Z88.0 Allergy status to penicillin; Z88.8 Allergy status to other drugs, medicaments and biological substances; Z80.1 Family history of malignant neoplasm of trachea, bronchus and lung; Z82.3 Family history of stroke; Z82.49 Family history of ischemic heart disease and other diseases of the circulatory system; Z83.3 Family history of diabetes mellitus; Z90.49 Acquired absence of other specified parts of digestive tract
CPT/HCPCS: 36415; 36600; 71045; 80048; 80053; 82805; 83605; 84484; 85007; 85025; 85027; 87040; 87070; 87205; 93005; 94640; 96365; 96366; 96368; 96375; G0378; J0696

== ENCOUNTER 2019-06-07 22:03 | Inpatient (IN) | payer MEDICAID | END 2019-06-10 13:51 | disposition home or self-care (01) | LOC: TELE 22:04 → ER 22:03 → TELE-WESTW 06-08 16:55 | DX: J18.1 Lobar pneumonia, unspecified organism (principal); I11.0 Hypertensive heart disease with heart failure; J45.901 Unspecified asthma with (acute) exacerbation; E66.9 Obesity, unspecified ==

== ENCOUNTER 2019-06-19 19:33 | Emergency (ER) | payer MEDICAID ==
[~2019-06-19] VITALS: Ht 165.1 cm; Wt 77.1 kg
[~2019-06-19 19:33] MED LIST changes: +IPRIH IN; +MONT10TA23 PO
[2019-06-19] MEDS ORDERED: ALBUTEROL SULF 2.5 MG/0.5ML(0.5%) NEB SOLN HHN STA (19:51)
[2019-06-19] MEDS ORDERED: IPRATROPIUM BROM 0.5 MG/2.5ML INH SOL NEB ONE ×2 (20:00→23:45)
[2019-06-19 22:27] VITALS: BP 126/67
[2019-06-19] MEDS ORDERED: methylPREDNISolone SOD SUCC 125 MG/2 ML VL IM ONE (23:30)
[2019-06-19] MEDS ORDERED: ALBUTEROL SULF 2.5 MG/0.5ML(0.5%) NEB SOLN NEB ONE (23:45)
== END 2019-06-20 00:07 | disposition home or self-care (01) ==
LOC: ER 19:35
DX: J45.901 Unspecified asthma with (acute) exacerbation (principal)
CPT/HCPCS: 94640; 96372; 99284; J2930; J7611; J7644

== ENCOUNTER 2019-06-23 07:30 | Inpatient (IN) | payer MEDICAID ==
[~2019-06-23] VITALS: Ht 165.1 cm; Wt 93.5 kg
[2019-06-23] MEDS ORDERED: SODIUM CHLORIDE 0.9% 500 ML IV ONE (08:00)
[2019-06-23] MEDS ORDERED: ALBUTEROL SULF 2.5 MG/0.5ML(0.5%) NEB SOLN HHN ONE (08:00)
[2019-06-23] MEDS ORDERED: IPRATROPIUM BROM 0.5 MG/2.5ML INH SOL HHN ONE (08:00)
[2019-06-23] MEDS ORDERED: methylPREDNISolone SOD SUCC 125 MG/2 ML VL IV ONE (08:00)
[2019-06-23 08:27] LABS: Basophils # (auto) 0.1 uL; Eosinophils % (auto) 14.3 % (0.0-7.0); Hematocrit 38.8 % (36.0-46.0); Hemoglobin 12.6 g/dL (12.2-16.2); Lymphocytes # (auto) 1.7 uL; Lymphocytes % (auto) 24.2 % (10.0-50.0); Mean Corpuscular Hgb Conc. 32.4 g/dL (32.0-36.0); Mean Corpuscular Volume 86.6 fL (80.0-100.0); Monocytes # (auto) 0.5 uL; Monocytes % (auto) 6.8 % (0.0-12.0); Neutrophils # (auto) 3.7 uL; Neutrophils % (auto) 53.7 % (37.0-80.0); Nucleated Red Blood Cells % 0.1 %; Platelet Count (auto) 268 10^3/uL (140-450); Red Blood Cells 4.48 10^6/uL (4.0-5.20); Red Cell Distribution Width 18.5 % (11.8-14.3); White Blood Cell 6.8 10^3/uL (4.4-10.8)
[2019-06-23 08:48] LABS: Albumin 3.4 g/dL (3.4-5.0); BUN/Creatinine Ratio 9.5; Calcium 8.7 mg/dL (8.5-10.1); Magnesium 2.5 mg/dL (1.6-2.6); Potassium 3.8 mmol/L (3.5-5.1)
[2019-06-23 08:50] LABS: Bilirubin, Total 0.4 mg/dL (0.2-1.0); Total Protein 7.2 g/dL (6.4-8.2)
[2019-06-23] MEDS ORDERED: NITROGLYCERIN 0.4 MG SL TAB SL PRN (09:30)
[2019-06-23] MEDS ORDERED: LACTULOSE 20Gm/30ML SOLN PO PRN (09:30)
[2019-06-23] MEDS ORDERED: TEMAZEPAM 15 MG CAP PO PRN (09:30)
[2019-06-23] MEDS ORDERED: ALBUTEROL SULF 2.5 MG/0.5ML(0.5%) NEB SOLN NEB PRN (09:30)
[2019-06-23] MEDS ORDERED: MORPHINE SULF INJ 2 MG/ML SYRINGE 1ML IV PRN (09:30)
[2019-06-23] MEDS ORDERED: traMADol HCL 50 MG TAB PO PRN (09:30)
[2019-06-23] MEDS ORDERED: PROMETHAZINE HCL 25 MG/ML 1ML IV PRN (09:30)
[2019-06-23] MEDS ORDERED: ACETAMINOPHEN 500 MG TAB PO PRN (09:30)
[2019-06-23] MEDS: PANTOPRAZOLE 40 MG TAB PO SCH (10:05)
[2019-06-23] MEDS: cefTRIAXone 1GM/50ML D5W 50 ML IV SCH (10:05)
[2019-06-23] MEDS: SODIUM CHLORIDE 0.9% 1,000 ML IV SCH ×2 (10:05→22:41)
[2019-06-23] MEDS: ENOXAPARIN SOD 40 MG/0.4 ML SYRINGE SC SCH (10:05)
--- NOTE | 2019-06-23 10:55 | NUR ---
Telemetry admit from ER FRANCOIS LEON admitted to Telemetry unit after SBAR received. Patient oriented to Dale Fraga, primary RN, unit, room, bed, and unit policies regarding patient care and visiting hours. Patient now on continuous telemetry monitoring, tele box # 3 and telemetry reading on arrival to unit is Sinus Rhythm. Patient placed on bedside oxygen at 2L/min, weighed by bedscale and encouraged to call if they need something. All questions and concerns addressed, patient verbalized understanding.
[2019-06-23] MEDS: IPRATROPIUM BROM 0.5 MG/2.5ML INH SOL NEB SCH ×3 (11:39→23:08)
[2019-06-23] MEDS: ALBUTEROL SULF 2.5 MG/0.5ML(0.5%) NEB SOLN NEB SCH ×3 (11:39→23:08)
[2019-06-23 12:02] LABS: Urine WBC None Seen /hpf (0 - 5)
[2019-06-23] MEDS: AZITHROMYCIN 500MG/ 250ML 250 ML IV SCH (12:11)
[2019-06-23] MEDS: methylPREDNISolone SOD SUCC 40 MG/ML VL IV SCH ×3 (12:14→23:02)
[2019-06-23 12:16] LABS: Urine Bacteria NONE SEEN /hpf (None Seen); Urine Blood Negative /uL (Negative); Urine Specific Gravity 1.009 (1.001-1.035)
[2019-06-23 12:41] VITALS: BP 115/64
[2019-06-23 13:48] VITALS: BP 115/64
[2019-06-23 16:43] VITALS: BP 135/55
--- NOTE | 2019-06-23 19:30 | NUR ---
Opening shift note Patient in bed alert and oriented x 4, verbally coherent able to make needs known. Patient denies pain and discomfort at this time. Plan of care discussed, patient verbalized understanding. All needs attended, will continue to monitor.
[2019-06-23 21:47] VITALS: BP 133/61
--- NOTE | 2019-06-24 05:00 | NUR ---
Patient having shortness of breath, paged RT.
--- NOTE | 2019-06-24 05:05 | NUR ---
RT at bedside assessed patient. Breathing tx ongoing
[2019-06-24] MEDS: methylPREDNISolone SOD SUCC 40 MG/ML VL IV SCH ×2 (05:08→12:25)
[2019-06-24 05:26] VITALS: BP 120/65
[2019-06-24] MEDS: ALBUTEROL SULF 2.5 MG/0.5ML(0.5%) NEB SOLN NEB SCH ×5 (05:53→22:39)
[2019-06-24] MEDS: IPRATROPIUM BROM 0.5 MG/2.5ML INH SOL NEB SCH ×2 (05:53→11:15)
--- NOTE | 2019-06-24 07:30 | NUR ---
Opening Shift Note Assumed care of patient, awake and alert. No S/S of distress/SOB or pain. Instructed on POC and to call for assist PRN, will continue to monitor for changes Q1hr and PRN.
[2019-06-24 08:00] VITALS: BP 139/61
[2019-06-24 09:00] VITALS: BP 139/61
[2019-06-24] MEDS: cefTRIAXone 1GM/50ML D5W 50 ML IV SCH (09:27)
[2019-06-24] MEDS: PANTOPRAZOLE 40 MG TAB PO SCH (09:27)
[2019-06-24] MEDS: ENOXAPARIN SOD 40 MG/0.4 ML SYRINGE SC SCH (09:28)
[2019-06-24] MEDS: AZITHROMYCIN 500MG/ 250ML 250 ML IV SCH (11:54)
[2019-06-24] MEDS: SODIUM CHLORIDE 0.9% 1,000 ML IV SCH (12:25)
[2019-06-24 13:00] VITALS: BP 123/60
[2019-06-24] MEDS ORDERED: ALBUTEROL SULF 2.5 MG/0.5ML(0.5%) NEB SOLN NEB ONE (16:30)
[2019-06-24 16:42] VITALS: BP 137/84
[2019-06-24] MEDS ORDERED: ALBUTEROL SULF 2.5 MG/0.5ML(0.5%) NEB SOLN ONE (16:46)
[2019-06-24] MEDS ORDERED: ALBUTEROL SULF 2.5 MG/0.5ML(0.5%) NEB SOLN NEB SCH (18:00)
[2019-06-24 21:00] VITALS: BP 107/58
[2019-06-24] MEDS: methylPREDNISolone SOD SUCC 125 MG/2 ML VL IV SCH (21:15)
[2019-06-25] MEDS: SODIUM CHLORIDE 0.9% 1,000 ML IV SCH ×2 (01:21→15:18)
[2019-06-25] MEDS: ALBUTEROL SULF 2.5 MG/0.5ML(0.5%) NEB SOLN NEB SCH ×6 (01:55→22:22)
[2019-06-25 04:30] VITALS: BP 136/75
[2019-06-25] MEDS: methylPREDNISolone SOD SUCC 125 MG/2 ML VL IV SCH ×3 (06:06→21:49)
--- NOTE | 2019-06-25 08:00 | NUR ---
Opening Shift Note Assumed care of patient, awake and alert. Patient sitting up on the side of the bed. No S/S of distress/SOB or pain. Instructed on POC and to call for assist PRN, will continue to monitor for changes Q1hr and PRN.
[2019-06-25] MEDS: cefTRIAXone 1GM/50ML D5W 50 ML IV SCH (09:34)
[2019-06-25 10:09] VITALS: BP 147/85
[2019-06-25] MEDS: PANTOPRAZOLE 40 MG TAB PO SCH (10:44)
[2019-06-25] MEDS: AZITHROMYCIN 500MG/ 250ML 250 ML IV SCH (10:44)
[2019-06-25] MEDS: ENOXAPARIN SOD 40 MG/0.4 ML SYRINGE SC SCH (10:45)
[2019-06-25 12:59] VITALS: BP 108/53
[2019-06-25 17:08] VITALS: BP 121/73
[2019-06-25 22:00] VITALS: BP 119/62
--- NOTE | 2019-06-25 22:00 | NUR ---
Scheduled medication given. Patient has no complains at this time. Care continued.
--- NOTE | 2019-06-26 | NUR ---
Patient has no complains at this time. Care continued.
[2019-06-26] MEDS: ALBUTEROL SULF 2.5 MG/0.5ML(0.5%) NEB SOLN NEB SCH ×6 (02:10→22:00)
--- NOTE | 2019-06-26 03:15 | NUR ---
Patient called, complained of shortness of breath. Breathing treatment just given an hour ago. Respiratory therapist paged. RT went to patient's room promptly to assess patient. Dr. Church paged regarding patient's condition. Awaiting for call back.
--- NOTE | 2019-06-26 03:30 | NUR ---
Patient still short of breath. Inspiratory wheezing heard. No call back from . Dr. Church repaged. Patient will be monitored closely.
[2019-06-26] MEDS ORDERED: ALBUTEROL SULF 2.5 MG/0.5ML(0.5%) NEB SOLN NEB ONE (03:45)
[2019-06-26] MEDS ORDERED: ALBUTEROL SULF 2.5 MG/0.5ML(0.5%) NEB SOLN ONE (03:45)
--- NOTE | 2019-06-26 03:45 | NUR ---
Still no call back from Dr. Church. Called charge account authorizer to inform her of patient's condition. business analyst advised to repage RT. RT repaged. RT called back promptly, updated with patient's condition. RT advised that he will see patient. RT at bedside. Per RT, he is able to obtain an order of an extra dose of breathing treatment from hospitalist Amol Watts NP. RT at bedside to give patient breathing treatment. Will continue to closely monitor patient.
[2019-06-26] MEDS: SODIUM CHLORIDE 0.9% 1,000 ML IV SCH ×2 (04:01→16:39)
--- NOTE | 2019-06-26 04:15 | NUR ---
Patient verbalizing she is feeling much better after the extra dose of breathing treatment. Will continue to closely monitor patient.
[2019-06-26 04:58] VITALS: BP 127/71
--- NOTE | 2019-06-26 06:00 | NUR ---
Patient feeling better after the extra dose of breathing treatment but complaining of feeling worse compared to last night. Report to be given to oncoming RN.
[2019-06-26] MEDS: methylPREDNISolone SOD SUCC 125 MG/2 ML VL IV SCH ×2 (06:21→22:10)
--- NOTE | 2019-06-26 08:05 | NUR ---
Call back received from Dr. Church. Orders received, read back and noted. Report given to oncoming RN.
[2019-06-26] MEDS ORDERED: methylPREDNISolone SOD SUCC 125 MG/2 ML VL IV ONE (08:15)
[2019-06-26] MEDS ORDERED: ALBUTEROL SULF 2.5 MG/0.5ML(0.5%) NEB SOLN NEB PRN (08:15)
[2019-06-26 08:58] VITALS: BP 126/75
[2019-06-26] MEDS: cefTRIAXone 1GM/50ML D5W 50 ML IV SCH (09:48)
[2019-06-26] MEDS: PANTOPRAZOLE 40 MG TAB PO SCH (09:48)
[2019-06-26] MEDS: ENOXAPARIN SOD 40 MG/0.4 ML SYRINGE SC SCH (09:49)
[2019-06-26] MEDS: AZITHROMYCIN 500MG/ 250ML 250 ML IV SCH (10:27)
--- NOTE | 2019-06-26 12:43 | NUR ---
Nutrition Assessment Notes please see attached link for complete assessment Est. Needs ABW (74 kg): [id number] kcal (20-23kcal/kgBW), 74-81 gms pro (1.0-1.1 gms/kgBW). Will continue to monitor pertinent labs and reassess nutrient need prn Addendum: 06/26/19 at [address] Amended: Links added.
[2019-06-26 14:50] VITALS: BP 135/74
[2019-06-26 15:20] VITALS: BP 135/74
[2019-06-26 17:27] VITALS: BP 133/71
--- NOTE | 2019-06-26 18:31 | NUR ---
SOLUMEDROL/ALLERGIES PHARMACY NOTIFIED THIS NURSE THAT THE SOLUMEDROL WAS PLACED ON HOLD DUE TO AN ALLERGY TO BECLOMETHASONE. THE PATIENT STATED IT CAUSES BLE EDEMA. PATIENT WAS EXHIBITING THIS SYMPTOM THIS AFTERNOON. NOTIFIED DR. BERMUDEZ AND HE WROTE AN ORDER FOR LASIX AND POTASSIUM AND SAID IT IS OK TO RESTART THE SOLUMEDROL.
[2019-06-26 21:55] VITALS: BP 122/62
[2019-06-27] MEDS: ALBUTEROL SULF 2.5 MG/0.5ML(0.5%) NEB SOLN NEB SCH ×6 (02:08→23:00)
[2019-06-27] MEDS: methylPREDNISolone SOD SUCC 125 MG/2 ML VL IV SCH (06:22)
[2019-06-27] MEDS: SODIUM CHLORIDE 0.9% 1,000 ML IV SCH ×2 (06:45→20:01)
--- NOTE | 2019-06-27 07:25 | NUR ---
Patient had an uneventful night. No complain of pain, no signs nor symptoms of shortness of breath. Report given to oncoming RN.
--- NOTE | 2019-06-27 08:00 | NUR ---
Opening Shift Note Assumed care of patient, awake and alert. No S/S of distress/SOB or pain. Still has some expiratory wheezing. Instructed on POC and to call for assist PRN, will continue to monitor for changes Q1hr and PRN.
[2019-06-27 09:00] VITALS: BP 140/74
[2019-06-27] MEDS: FUROSEMIDE 40 MG TAB PO SCH (10:00)
[2019-06-27] MEDS: ENOXAPARIN SOD 40 MG/0.4 ML SYRINGE SC SCH (10:05)
[2019-06-27] MEDS: cefTRIAXone 1GM/50ML D5W 50 ML IV SCH (10:05)
[2019-06-27] MEDS: POTASSIUM CHL 10 Meq TABLET PO SCH (10:05)
[2019-06-27] MEDS: PANTOPRAZOLE 40 MG TAB PO SCH (10:05)
[2019-06-27] MEDS: AZITHROMYCIN 500MG/ 250ML 250 ML IV SCH (10:30)
[2019-06-27 13:00] VITALS: BP 148/74
[2019-06-27] MEDS: methylPREDNISolone SOD SUCC 40 MG/ML VL IV SCH ×2 (14:44→21:33)
[2019-06-27 17:00] VITALS: BP 155/88
[2019-06-27 22:00] VITALS: BP 142/75
[2019-06-28] MEDS: ALBUTEROL SULF 2.5 MG/0.5ML(0.5%) NEB SOLN NEB SCH ×4 (02:02→14:41)
[2019-06-28 05:45] VITALS: BP 139/75
[2019-06-28] MEDS: methylPREDNISolone SOD SUCC 40 MG/ML VL IV SCH ×2 (06:10→14:03)
--- NOTE | 2019-06-28 07:50 | NUR ---
Opening Shift Note Assumed care of patient, asleep. No S/S of distress/SOB or pain. Breathing is even and non-labored Instructed on POC and to call for assist PRN, will continue to monitor for changes Q1hr and PRN.
[2019-06-28 09:00] VITALS: BP 145/79
[2019-06-28] MEDS: cefTRIAXone 1GM/50ML D5W 50 ML IV SCH (09:19)
[2019-06-28] MEDS: POTASSIUM CHL 10 Meq TABLET PO SCH (09:20)
[2019-06-28] MEDS: FUROSEMIDE 40 MG TAB PO SCH (09:20)
[2019-06-28] MEDS: PANTOPRAZOLE 40 MG TAB PO SCH (09:20)
[2019-06-28] MEDS: ENOXAPARIN SOD 40 MG/0.4 ML SYRINGE SC SCH (09:20)
[2019-06-28] MEDS: AZITHROMYCIN 500MG/ 250ML 250 ML IV SCH (12:57)
[2019-06-28] MEDS: SODIUM CHLORIDE 0.9% 1,000 ML IV SCH (12:58)
[2019-06-28 13:00] VITALS: BP 154/84
--- NOTE | 2019-06-28 14:00 | NUR ---
Dr. Church at bedside.
--- NOTE | 2019-06-28 14:30 | NUR ---
Spoke to patient. Patient stated that she already have an appointment with Dr. Vang, recreation specialist.
--- NOTE | 2019-06-28 16:40 | NUR ---
Discharge instructions given as ordered. Encourage to follow up with PMD and motel front desk clerk as instructed. All questions and concerns addressed. Patient verbalized understanding. Medication reconciliation form completed and copy given to patient. Home medications held in Pharmacy returned to patient. IV removed with catheter intact, pressure dressing applied. Telemetry unit returned to ICU. Patient taken to vehicle via wheelchair with all personal belongings, accompanied by staff and family member. No distress noted at time of departure.
== END 2019-06-28 16:40 | disposition home or self-care (01) | DRG 139 ==
LOC: EDBD 07:30 → ER 07:30 → TELE 07:31 → TELE-EAST 10:55
PROVIDERS: ADMIT Internal Medicine; ATTEND Internal Medicine
DX: J18.9 Pneumonia, unspecified organism (principal); J45.902 Unspecified asthma with status asthmaticus; E66.9 Obesity, unspecified; R06.02 Shortness of breath; Z90.49 Acquired absence of other specified parts of digestive tract; Z83.3 Family history of diabetes mellitus; Z82.49 Family history of ischemic heart disease and other diseases of the circulatory system; Z87.01 Personal history of pneumonia (recurrent); Z79.899 Other long term (current) drug therapy; Z98.2 Presence of cerebrospinal fluid drainage device; Z82.3 Family history of stroke; Z68.34 Body mass index [BMI] 34.0-34.9, adult
CPT/HCPCS: 36415; 71045; 71250; 80053; 81001; 83735; 85025; 87070; 87081; 87205; 94640; 94644; 94761; 96361; 96365; 96372; 96375; 99291; G0378; J0696

== ENCOUNTER 2019-07-18 05:35 | Emergency (ER) | payer MEDICAID ==
[~2019-07-18] VITALS: Ht 162.6 cm; Wt 77.1 kg
[2019-07-18 06:25] LABS: Basophils # (auto) 0 uL; Basophils % (auto) 0.5 % (0.0-2.0); Eosinophils # (auto) 0.4 uL; Hematocrit 38.5 % (36.0-46.0); Hemoglobin 12.4 g/dL (12.2-16.2); Lymphocytes # (auto) 1.2 uL; Mean Corpuscular Hemoglobin 27.8 pg (28.0-32.0); Mean Corpuscular Hgb Conc. 32.1 g/dL (32.0-36.0); Mean Corpuscular Volume 86.6 fL (80.0-100.0); Monocytes # (auto) 0.3 uL; Monocytes % (auto) 4.2 % (0.0-12.0); Neutrophils # (auto) 5.7 uL; Neutrophils % (auto) 74.3 % (37.0-80.0); Platelet Count (auto) 306 10^3/uL (140-450); Red Blood Cells 4.45 10^6/uL (4.0-5.20); Red Cell Distribution Width 18.2 % (11.8-14.3); White Blood Cell 7.7 10^3/uL (4.4-10.8)
[2019-07-18] MEDS ORDERED: IPRATROPIUM BROM 0.5 MG/2.5ML INH SOL NEB ONE (06:45)
[2019-07-18] MEDS ORDERED: ALBUTEROL SULF 2.5 MG/0.5ML(0.5%) NEB SOLN NEB ONE (06:45)
[2019-07-18 06:50] LABS: Albumin 3.4 g/dL (3.4-5.0); Anion Gap 9 (5-15); BUN/Creatinine Ratio 9.1; Blood Urea Nitrogen 9 mg/dL (7-18); Calcium 8.5 mg/dL (8.5-10.1); Carbon Dioxide 24 mmol/L (21-32); Chloride 107 mmol/L (98-107); GFR African American 75 mL/min; GFR Non-African American 62 mL/min; Glucose 140 mg/dL (74-106); Potassium 3.6 mmol/L (3.5-5.1); Sodium 140 mmol/L (136-145)
[2019-07-18 06:58] LABS: Alanine Aminotransferase 22 U/L (13-56); Alkaline Phosphatase 43 U/L (45-117); Aspartate Aminotransferase 15 U/L (15-37); Bilirubin, Total 0.3 mg/dL (0.2-1.0); Total Protein 7.1 g/dL (6.4-8.2)
[2019-07-18 07:27] VITALS: BP 119/61
== END 2019-07-18 10:55 | disposition home or self-care (01) ==
LOC: EDBD 05:35 → ER 05:37
DX: J45.901 Unspecified asthma with (acute) exacerbation (principal); Z90.49 Acquired absence of other specified parts of digestive tract
CPT/HCPCS: 36415; 71045; 80053; 83605; 83880; 84484; 85025; 93005; 94640; 94761; 99284; J7611; J7644

== ENCOUNTER 2019-08-19 19:24 | Emergency (ER) | payer MEDICAID ==
[~2019-08-19] VITALS: Ht 165.1 cm; Wt 81.6 kg
[2019-08-19 20:16] LABS: Basophils # (auto) 0 uL; Basophils % (auto) 0.5 % (0.0-2.0); Eosinophils # (auto) 0.3 uL; Eosinophils % (auto) 4.8 % (0.0-7.0); Hematocrit 37.5 % (36.0-46.0); Hemoglobin 12.2 g/dL (12.2-16.2); Lymphocytes # (auto) 1.1 uL; Lymphocytes % (auto) 15.4 % (10.0-50.0); Mean Corpuscular Hemoglobin 27.4 pg (28.0-32.0); Mean Corpuscular Hgb Conc. 32.6 g/dL (32.0-36.0); Mean Corpuscular Volume 84.2 fL (80.0-100.0); Monocytes # (auto) 0.3 uL; Monocytes % (auto) 4.1 % (0.0-12.0); Neutrophils # (auto) 5.3 uL; Neutrophils % (auto) 75.2 % (37.0-80.0); Platelet Count (auto) 270 10^3/uL (140-450); Red Blood Cells 4.46 10^6/uL (4.0-5.20); Red Cell Distribution Width 18.4 % (11.8-14.3); White Blood Cell 7.1 10^3/uL (4.4-10.8)
[2019-08-19 20:32] LABS: Albumin 3.5 g/dL (3.4-5.0); BUN/Creatinine Ratio 7.8; Calcium 8.7 mg/dL (8.5-10.1); Potassium 3.6 mmol/L (3.5-5.1)
[2019-08-19 20:34] LABS: Bilirubin, Total 0.4 mg/dL (0.2-1.0); Total Protein 7.6 g/dL (6.4-8.2)
[2019-08-19] MEDS ORDERED: FUROSEMIDE 40 MG/4 ML VIAL IV ONE (22:45)
[2019-08-19] MEDS ORDERED: diphenhdrAMINE HCL 50 MG/1 ML VL IV ONE (22:45)
[2019-08-19 23:01] VITALS: BP 132/72
[2019-09-11] MEDS ORDERED: ALBUAER3 IN (12:42)
[2019-09-11] MEDS ORDERED: FLUT250M2 INH (12:42)
[2019-09-11] MEDS ORDERED: ALBU0.084 NEB (12:42)
== END 2019-08-20 00:55 | disposition home or self-care (01) ==
LOC: ER 19:27
DX: R60.0 Localized edema (principal); J32.9 Chronic sinusitis, unspecified; J45.909 Unspecified asthma, uncomplicated; Z88.6 Allergy status to analgesic agent; Z88.8 Allergy status to other drugs, medicaments and biological substances; Z79.899 Other long term (current) drug therapy; Z90.49 Acquired absence of other specified parts of digestive tract
CPT/HCPCS: 36415; 80053; 83880; 84484; 85025; 85379; 93970; 96374; 96375; 99284; J1200; J1940

== ENCOUNTER 2019-09-02 19:31 | Emergency (ER) | payer MEDICAID ==
[~2019-09-02] VITALS: Ht 165.1 cm; Wt 81.6 kg
[2019-09-02 23:22] LABS: Hematocrit 36.9 % (36.0-46.0); Hemoglobin 11.9 g/dL (12.2-16.2); Mean Corpuscular Hemoglobin 27.4 pg (28.0-32.0); Mean Corpuscular Hgb Conc. 32.2 g/dL (32.0-36.0); Mean Corpuscular Volume 84.9 fL (80.0-100.0); Platelet Count (auto) 260 10^3/uL (140-450); Red Blood Cells 4.34 10^6/uL (4.0-5.20); Red Cell Distribution Width 18.4 % (11.8-14.3); White Blood Cell 7.4 10^3/uL (4.4-10.8)
[2019-09-02 23:30] LABS: Band Neutrophils % (manual) 0; Basophils % (manual) 0 (0.0-2.0); Blast Cells 0; Metamyelocytes % 0; Myelocytes % 0; Promyelocytes % 0; Reactive Lymphocytes 0
[2019-09-02 23:32] LABS: Alanine Aminotransferase 15 U/L (13-56); Albumin 3.4 g/dL (3.4-5.0); Anion Gap 8 (5-15); Aspartate Aminotransferase 16 U/L (15-37); BUN/Creatinine Ratio 6.9; Blood Urea Nitrogen 7 mg/dL (7-18); Calcium 8.7 mg/dL (8.5-10.1); Carbon Dioxide 26 mmol/L (21-32); Chloride 108 mmol/L (98-107); GFR African American 74 mL/min; GFR Non-African American 61 mL/min; Glucose 95 mg/dL (74-106); Potassium 3.8 mmol/L (3.5-5.1); Sodium 142 mmol/L (136-145)
[2019-09-02 23:35] LABS: Alkaline Phosphatase 47 U/L (45-117); Bilirubin, Total 0.3 mg/dL (0.2-1.0); Total Protein 7.1 g/dL (6.4-8.2)
[2019-09-02 23:53] LABS: INR 0.99 (0.9-1.15); Partial Thromboplastin Time 27.5 sec (23.64-32.05)
[2019-09-03 00:06] LABS: Eosinophils % (manual) 20 (0-7); Lymphocytes % (manual) 23 (10.0-50.0); Monocytes % (manual) 11 (0-12)
[2019-09-03] MEDS ORDERED: FUROSEMIDE 20 MG/2 ML VIAL IV ONE (03:30)
[2019-09-03 04:00] VITALS: BP 120/57
== END 2019-09-03 05:32 | disposition home or self-care (01) ==
LOC: ER 19:36
DX: R60.0 Localized edema (principal); J45.909 Unspecified asthma, uncomplicated; Z90.89 Acquired absence of other organs; Z88.6 Allergy status to analgesic agent
CPT/HCPCS: 36415; 71046; 80053; 83880; 84484; 85007; 85027; 85610; 85730; 93005; 93970; 96374; 99284; J1940

== ENCOUNTER 2019-10-26 07:20 | Inpatient (IN) | payer MEDICAID, OTHER ==
[~2019-10-26] VITALS: Ht 165.1 cm; Wt 96.0 kg
[~2019-10-26 07:20] MED LIST changes: +ALBU0.084 NEB; +FLUT250M2 INH; -MONT10TA23 PO
[2019-10-26 08:06] LABS: Basophils # (auto) 0 uL; Basophils % (auto) 0.6 % (0.0-2.0); Eosinophils # (auto) 0.7 uL; Eosinophils % (auto) 9.2 % (0.0-7.0); Hematocrit 34.6 % (36.0-46.0); Hemoglobin 11.3 g/dL (12.2-16.2); Lymphocytes # (auto) 1.5 uL; Lymphocytes % (auto) 19.4 % (10.0-50.0); Mean Corpuscular Hemoglobin 27.4 pg (28.0-32.0); Mean Corpuscular Hgb Conc. 32.6 g/dL (32.0-36.0); Mean Corpuscular Volume 83.9 fL (80.0-100.0); Monocytes # (auto) 0.4 uL; Monocytes % (auto) 5.8 % (0.0-12.0); Platelet Count (auto) 234 10^3/uL (140-450); Red Blood Cells 4.12 10^6/uL (4.0-5.20); White Blood Cell 7.8 10^3/uL (4.4-10.8)
[2019-10-26] MEDS ORDERED: ALBUTEROL SULF 2.5 MG/0.5ML(0.5%) NEB SOLN NEB ONE (08:15)
[2019-10-26] MEDS ORDERED: methylPREDNISolone SOD SUCC 125 MG/2 ML VL IV ONE (08:15)
[2019-10-26] MEDS ORDERED: IPRATROPIUM BROM 0.5 MG/2.5ML INH SOL NEB ONE (08:15)
[2019-10-26 08:21] LABS: Albumin 3.2 g/dL (3.4-5.0); BUN/Creatinine Ratio 11.8; Calcium 8.2 mg/dL (8.5-10.1); Potassium 3.7 mmol/L (3.5-5.1)
[2019-10-26 08:24] LABS: Bilirubin, Total 0.3 mg/dL (0.2-1.0); Total Protein 7.1 g/dL (6.4-8.2)
[2019-10-26] MEDS ORDERED: TEMAZEPAM 15 MG CAP PO PRN (10:45)
[2019-10-26] MEDS ORDERED: MORPHINE SULF INJ 2 MG/ML SYRINGE 1ML IV PRN (10:45)
[2019-10-26] MEDS ORDERED: OSELTAMIVIR 75 MG CAP PO ONE (10:45)
[2019-10-26] MEDS ORDERED: ACETAMINOPHEN 500 MG TAB PO PRN (10:45)
[2019-10-26] MEDS ORDERED: ALBUTEROL SULF 2.5 MG/0.5ML(0.5%) NEB SOLN NEB PRN (10:45)
[2019-10-26] MEDS ORDERED: PROMETHAZINE HCL 25 MG/ML 1ML IV PRN (10:45)
[2019-10-26] MEDS ORDERED: traMADol HCL 50 MG TAB PO PRN (10:45)
[2019-10-26] MEDS ORDERED: LACTULOSE 20Gm/30ML SOLN PO PRN (10:45)
[2019-10-26] MEDS ORDERED: NITROGLYCERIN 0.4 MG SL TAB SL PRN (10:45)
[2019-10-26] MEDS ORDERED: DEXTROSE (50%) 50ML SYRG IV PRN (10:45)
[2019-10-26 10:51] VITALS: BP 122/68
[2019-10-26] MEDS: IPRATROPIUM BROM 0.5 MG/2.5ML INH SOL NEB SCH ×3 (11:23→22:48)
[2019-10-26] MEDS: ALBUTEROL SULF 2.5 MG/0.5ML(0.5%) NEB SOLN NEB SCH ×3 (11:24→22:48)
[2019-10-26] MEDS: DOXYCYCLINE 100MG/250ML 250 ML IV SCH ×2 (11:32→22:37)
[2019-10-26] MEDS ORDERED: methylPREDNISolone SOD SUCC 40 MG/ML VL IV SCH (12:00)
[2019-10-26] MEDS: ACCU-CHEK COMFORT CURVE STRIP VI SCH ×3 (12:31→22:00)
--- NOTE | 2019-10-26 12:31 | NUR ---
FLU SWAB SENT TO LAB.
--- NOTE | 2019-10-26 12:31 | NUR ---
UA SENT TO LAB.
[2019-10-26 12:48] LABS: Urine Bacteria FEW /hpf (None Seen); Urine Blood Negative /uL (Negative); Urine Specific Gravity 1.011 (1.001-1.035); Urine WBC <1 /hpf (0 - 5)
[2019-10-26 12:50] VITALS: BP 128/70
[2019-10-26 17:13] VITALS: BP 109/56
[2019-10-26 18:00] VITALS: BP 116/61
--- NOTE | 2019-10-26 20:10 | NUR ---
Opening Shift Note Assumed care of patient, awake and alert. No S/S of distress/SOB or pain. Instructed on POC and to call for assist PRN, will continue to monitor for changes Q1hr and PRN.
[2019-10-26] MEDS ORDERED: OSELTAMIVIR 75 MG CAP PO SCH (22:00)
[2019-10-26] MEDS: methylPREDNISolone SOD SUCC 40 MG/ML VL IV SCH (22:37)
--- NOTE | 2019-10-27 00:20 | NUR ---
LH IV removal IV DC'd with clean sterile technique, catheter fully intact. Pressure dressing applied to site. Patient tolerated well.
--- NOTE | 2019-10-27 00:25 | NUR ---
IV insertion IV access obtained, via clean sterile technique by inserting 22 gauge catheter at [facility]. IV secured properly. No trauma to site. Patient tolerated well.
[2019-10-27 05:00] VITALS: BP 131/71
[2019-10-27] MEDS: ACCU-CHEK COMFORT CURVE STRIP VI SCH ×4 (06:16→21:35)
--- NOTE | 2019-10-27 07:23 | NUR ---
Flu A&B resulted negative on 10/26/19 at 12.20, Will Tamiflu discontinue pre protocol.
[2019-10-27] MEDS: ALBUTEROL SULF 2.5 MG/0.5ML(0.5%) NEB SOLN NEB SCH ×4 (07:28→23:16)
[2019-10-27] MEDS: IPRATROPIUM BROM 0.5 MG/2.5ML INH SOL NEB SCH ×4 (07:28→23:16)
[2019-10-27] MEDS: methylPREDNISolone SOD SUCC 40 MG/ML VL IV SCH ×2 (09:12→21:33)
[2019-10-27] MEDS: ENOXAPARIN SOD 40 MG/0.4 ML SYRINGE SC SCH (09:12)
[2019-10-27 09:46] VITALS: BP 125/63
[2019-10-27] MEDS: DOXYCYCLINE 100MG/250ML 250 ML IV SCH ×2 (11:03→21:34)
[2019-10-27 13:20] VITALS: BP 129/70
[2019-10-27 17:16] VITALS: BP 122/59
--- NOTE | 2019-10-27 19:24 | NUR ---
RT NOTE PRE PEAK FLOW BEST OF 3 220 LPM POST PEAK FLOW BEST OF 3 225 LPM
--- NOTE | 2019-10-27 19:35 | NUR ---
Opening Shift Note Assumed care of patient, awake and alert. No S/S of distress/SOB or pain. Bed in lowest locked position, side rails up x2, call light within reach. Instructed on POC and to call for assist PRN, will continue to monitor for changes Q1hr and PRN.
[2019-10-27 21:45] VITALS: BP 114/58
--- NOTE | 2019-10-28 01:00 | NUR ---
IV removal and insertion IVto left forearm DC'd with clean sterile technique, catheter fully intact. Pressure dressing applied to site. Patient tolerated well. IV access obtained, via clean sterile technique by inserting 22 gauge catheter patient's right hand after two attempts by charge nurse Kelli BORRERO. IV secured properly. No trauma to site. Patient tolerated well.
[2019-10-28 04:44] VITALS: BP 119/60
[2019-10-28] MEDS: ALBUTEROL SULF 2.5 MG/0.5ML(0.5%) NEB SOLN NEB SCH ×2 (06:32→11:27)
[2019-10-28] MEDS: IPRATROPIUM BROM 0.5 MG/2.5ML INH SOL NEB SCH ×2 (06:32→11:27)
[2019-10-28] MEDS: ACCU-CHEK COMFORT CURVE STRIP VI SCH ×2 (06:33→11:30)
--- NOTE | 2019-10-28 06:43 | NUR ---
Respiratory note: PEAK FLOW PRE/POST ASSESSMENT. PATIENT GAVE EXCELLENT EFFORT. PRE: 140 LPM POST: 235 LPM
--- NOTE | 2019-10-28 07:40 | NUR ---
Closing Note Patient lying in bed,awake and alert. Bed in lowest locked position, side rails up x2, call light within reach. No s/s of distress. Care endorsed to dayshift RN.
[2019-10-28 08:00] VITALS: BP 139/79
[2019-10-28 08:48] LABS: Basophils # (auto) 0 uL; Basophils % (auto) 0.1 % (0.0-2.0); Eosinophils # (auto) 0 uL; Hematocrit 36.9 % (36.0-46.0); Hemoglobin 12.1 g/dL (12.2-16.2); Lymphocytes # (auto) 1.4 uL; Lymphocytes % (auto) 11.2 % (10.0-50.0); Mean Corpuscular Hemoglobin 27.2 pg (28.0-32.0); Mean Corpuscular Hgb Conc. 32.7 g/dL (32.0-36.0); Mean Corpuscular Volume 83.4 fL (80.0-100.0); Monocytes # (auto) 0.3 uL; Monocytes % (auto) 2.2 % (0.0-12.0); Neutrophils # (auto) 10.9 uL; Neutrophils % (auto) 86.5 % (37.0-80.0); Nucleated Red Blood Cells % 0.1 %; Platelet Count (auto) 249 10^3/uL (140-450); Red Blood Cells 4.43 10^6/uL (4.0-5.20); Red Cell Distribution Width 18.5 % (11.8-14.3); White Blood Cell 12.6 10^3/uL (4.4-10.8)
[2019-10-28 09:00] VITALS: BP 139/79
[2019-10-28 09:12] LABS: Albumin 3.2 g/dL (3.4-5.0); Calcium 9.1 mg/dL (8.5-10.1); Magnesium 2.3 mg/dL (1.6-2.6); Potassium 4.1 mmol/L (3.5-5.1)
[2019-10-28 09:16] LABS: Bilirubin, Total 0.3 mg/dL (0.2-1.0); Phosphorus 3.4 mg/dL (2.5-4.90); Total Protein 7.3 g/dL (6.4-8.2)
[2019-10-28] MEDS: DOXYCYCLINE 100MG/250ML 250 ML IV SCH (10:37)
[2019-10-28] MEDS: methylPREDNISolone SOD SUCC 40 MG/ML VL IV SCH (10:38)
[2019-10-28] MEDS: ENOXAPARIN SOD 40 MG/0.4 ML SYRINGE SC SCH (10:38)
[2019-10-28] MEDS ORDERED: FLUT100M IN (11:00)
[2019-10-28] MEDS ORDERED: ALBU108A5 IN (11:00)
[2019-10-28] MEDS ORDERED: PRED20TA2 PO (11:00)
[2019-10-28] MEDS ORDERED: MONT10TA23 PO (11:00)
--- NOTE | 2019-10-28 11:38 | NUR ---
Respiratory note: PEAK FLOW PRE/POST ASSESSMENT. PATIENT GAVE EXCELLENT EFFORT. PRE: 180 LPM POST: 235 LPM
--- NOTE | 2019-10-28 14:40 | NUR ---
Discharge from Tele Discharge instructions given as ordered. Encourage to follow up with PMD as instructed. All questions and concerns addressed. Patient verbalized understanding. IV removed with catheter intact, pressure dressing applied, tate catheter removed. Telemetry unit returned to ICU. Patient taken to vehicle via wheelchair with all personal belongings, accompanied by staff and family member. No distress noted at time of departure.
== END 2019-10-28 14:50 | disposition home or self-care (01) | DRG 203 ==
LOC: ER 07:20 → TELE-CENTR 07:21
PROVIDERS: ADMIT Internal Medicine; ATTEND Hospitalist
DX: J45.901 Unspecified asthma with (acute) exacerbation (principal); E66.9 Obesity, unspecified; Z68.35 Body mass index [BMI] 35.0-35.9, adult; Z83.3 Family history of diabetes mellitus; Z88.0 Allergy status to penicillin; Z88.2 Allergy status to sulfonamides; Z88.8 Allergy status to other drugs, medicaments and biological substances; Z82.49 Family history of ischemic heart disease and other diseases of the circulatory system; Z82.3 Family history of stroke; Z91.14 Patient's other noncompliance with medication regimen; Z90.49 Acquired absence of other specified parts of digestive tract
CPT/HCPCS: 36415; 71045; 80053; 81001; 82962; 83036; 83735; 83880; 84100; 85025; 87804; 93005; 93970; 94010; 94640; 96374; 99291; G0378; J3490

== ENCOUNTER 2019-11-25 05:11 | Inpatient (IN) | payer SELFPAY ==
[~2019-11-25] VITALS: Ht 165.1 cm; Wt 86.7 kg
[~2019-11-25 05:11] MED LIST changes: -ALBU0.084 NEB; +ALBU108A5 IN; -ALBUAER3 IN; +FLUT100M IN; -FLUT250M2 INH; -IPRIH IN; +MONT10TA23 PO; +PRED20TA2 PO
[2019-11-25 06:36] LABS: Basophils # (auto) 0.1 uL; Basophils % (auto) 0.7 % (0.0-2.0); Eosinophils # (auto) 0.7 uL; Eosinophils % (auto) 7.5 % (0.0-7.0); Hematocrit 39.6 % (36.0-46.0); Hemoglobin 12.8 g/dL (12.2-16.2); Lymphocytes # (auto) 1.7 uL; Lymphocytes % (auto) 17.1 % (10.0-50.0); Mean Corpuscular Hgb Conc. 32.3 g/dL (32.0-36.0); Mean Corpuscular Volume 83.6 fL (80.0-100.0); Monocytes # (auto) 0.6 uL; Monocytes % (auto) 6.7 % (0.0-12.0); Neutrophils # (auto) 6.6 uL; Platelet Count (auto) 281 10^3/uL (140-450); Red Blood Cells 4.74 10^6/uL (4.0-5.20); Red Cell Distribution Width 18.4 % (11.8-14.3); White Blood Cell 9.7 10^3/uL (4.4-10.8)
[2019-11-25 06:51] LABS: INR 1.11 (0.9-1.15); Partial Thromboplastin Time 29.2 sec (23.64-32.05)
[2019-11-25 07:02] LABS: Albumin 3.4 g/dL (3.4-5.0); Amylase 48 U/L (25-115); Anion Gap 7 (5-15); Blood Urea Nitrogen 7 mg/dL (7-18); Calcium 8.6 mg/dL (8.5-10.1); Carbon Dioxide 25 mmol/L (21-32); Chloride 108 mmol/L (98-107); Glucose 101 mg/dL (74-106); Lipase 44 U/L (73-393); Potassium 3.4 mmol/L (3.5-5.1); Sodium 140 mmol/L (136-145)
[2019-11-25 07:08] LABS: Alanine Aminotransferase 16 U/L (13-56); Alkaline Phosphatase 61 U/L (45-117); Aspartate Aminotransferase 11 U/L (15-37); BUN/Creatinine Ratio 7.1; Bilirubin, Total 0.3 mg/dL (0.2-1.0); GFR African American 76 mL/min; GFR Non-African American 63 mL/min; Total Protein 7.4 g/dL (6.4-8.2)
[2019-11-25] MEDS ORDERED: SODIUM CHLORIDE 0.9% 1,000 ML IV ONE ×2 (08:49)
[2019-11-25] MEDS ORDERED: ONDANSETRON HCL 4 MG/2 ML VIAL IV ONE (09:00)
[2019-11-25] MEDS ORDERED: MORPHINE SULF INJ 2 MG/ML SYRINGE 1ML IV ONE (09:00)
[2019-11-25] MEDS ORDERED: LEVOFLOXACIN 500MG 100 ML IV ONE (09:00)
[2019-11-25] MEDS: SODIUM CHLORIDE 0.9% 1,000 ML IV SCH ×2 (09:48→20:00)
[2019-11-25] MEDS ORDERED: MORPHINE SULF INJ 2 MG/ML SYRINGE 1ML IV PRN (10:00)
[2019-11-25] MEDS ORDERED: MORPHINE SULFATE 4 MG/ML SYR/VIAL IV PRN (10:00)
[2019-11-25] MEDS ORDERED: PROMETHAZINE HCL 25 MG/ML 1ML IV PRN (10:00)
[2019-11-25 10:05] LABS: Urine Bacteria FEW /hpf (None Seen); Urine Blood 2+ /uL (Negative); Urine WBC 1 /hpf (0 - 5)
--- NOTE | 2019-11-25 10:37 | NUR ---
MS admit from ER: FRANCOIS LEON admitted to tele/MS after NO REPORT received. Patient oriented to JORDAN DE PAZ, RN primary RN, unit, room, bed, and unit policies regarding patient care and visiting hours. Patient weighed by bedscale and encouraged to call if they need something. All questions and concerns addressed, patient verbalized understanding.
[2019-11-25] MEDS: LEVOFLOXACIN 500MG 100 ML IV SCH (11:19)
[2019-11-25] MEDS: FAMOTIDINE (10MG/ML) 2ML VL IV SCH ×2 (11:20→22:33)
[2019-11-25 13:00] VITALS: BP 137/72
--- NOTE | 2019-11-25 13:27 | NUR ---
Dr. bradshaw. Dr. Lawrence consult.
[2019-11-25] MEDS: metroNIDAZOLE 500MG/100ML 100 ML IV SCH ×2 (14:02→22:34)
--- NOTE | 2019-11-25 14:15 | NUR ---
Paged Dr. Pittman regarding breathing treatments. New orders received, read back and verified.
[2019-11-25] MEDS ORDERED: ALBUTEROL SULF 2.5 MG/0.5ML(0.5%) NEB SOLN NEB PRN (14:30)
[2019-11-25 17:00] VITALS: BP 153/81
--- NOTE | 2019-11-25 18:20 | NUR ---
MRSA swab collected and sent.
--- NOTE | 2019-11-25 19:25 | NUR ---
Opening Shift Note Assumed care of patient. Patient is awake and alert. No S/S of distress/SOB or pain. Instructed on POC and to call for assist PRN, will continue to monitor for changes Q1hr and PRN. Bed locked in lowest position and bed rails up x2. Call light within reach.
--- NOTE | 2019-11-25 19:35 | NUR ---
Closing note: Patient resting in bed. No S/S of distress or SOB at this time. Care endorsed to [facility] G[facility]SELL Choudhury.
[2019-11-25 20:09] VITALS: BP 153/81
[2019-11-25 22:00] VITALS: BP 140/66
[2019-11-26] MEDS: ALBUTEROL SULF 2.5 MG/0.5ML(0.5%) NEB SOLN NEB SCH ×4 (00:13→18:50)
[2019-11-26 05:00] VITALS: BP 138/84
[2019-11-26] MEDS: SODIUM CHLORIDE 0.9% 1,000 ML IV SCH (05:48)
[2019-11-26] MEDS: metroNIDAZOLE 500MG/100ML 100 ML IV SCH ×3 (06:32→21:19)
--- NOTE | 2019-11-26 07:24 | NUR ---
Opening Shift Note: Assumed care of patient. Patient asleep at this time. No S/S of distress/SOB or pain. Respirations even and unlabored. Bed in lowest locked position, side rails up x 2, call light within reach. Patient will be instructed on POC, will continue to monitor for changes Q1hr and PRN.
[2019-11-26 09:22] VITALS: BP 154/81
[2019-11-26] MEDS ORDERED: ALBUTEROL SULF 2.5 MG/0.5ML(0.5%) NEB SOLN NEB PRN (09:30)
[2019-11-26] MEDS ORDERED: IPRATROPIUM BROM 0.5 MG/2.5ML INH SOL NEB PRN (09:30)
[2019-11-26] MEDS: LEVOFLOXACIN 500MG 100 ML IV SCH (09:59)
[2019-11-26] MEDS: FAMOTIDINE (10MG/ML) 2ML VL IV SCH ×2 (09:59→21:19)
[2019-11-26] MEDS: MORPHINE SULF INJ 2 MG/ML SYRINGE 1ML IV PRN ×2 (09:59→17:07)
--- NOTE | 2019-11-26 11:37 | NUR ---
Dr. Bradshaw. Dr. Amrik bradshaw, discussed POC with patient, patient verbally agreed.
--- NOTE | 2019-11-26 13:05 | NUR ---
Both IVs became painful and swollen. Left hand, and left wrist IVs D/C with clean sterile technique , Pressure dressing applied. Patient tolerated well. IV insertion: IV access obtained, via clean sterile technique by inserting 22 gauge catheter at right forearm after 1 attempt. IV secured properly. No trauma to site. Patient tolerated well.
[2019-11-26 13:28] VITALS: BP 142/67
[2019-11-26] MEDS: D5W/ SOD CHL 0.9%/KCL 20MEQ 1,000 ML IV SCH ×2 (14:25→21:19)
[2019-11-26 16:58] VITALS: BP 155/83
--- NOTE | 2019-11-26 19:05 | NUR ---
Closing note: Patient resting in bed. No S/S of pain, distress or SOB at this time. Care endorsed to NOC GISSELL Mar.
[2019-11-26 22:00] VITALS: BP 125/77
[2019-11-27] MEDS: ALBUTEROL SULF 2.5 MG/0.5ML(0.5%) NEB SOLN NEB SCH ×4 (00:30→18:19)
[2019-11-27 05:00] VITALS: BP 160/87
[2019-11-27] MEDS: D5W/ SOD CHL 0.9%/KCL 20MEQ 1,000 ML IV SCH ×2 (05:16→15:30)
[2019-11-27] MEDS: metroNIDAZOLE 500MG/100ML 100 ML IV SCH ×3 (06:54→22:00)
[2019-11-27 07:01] VITALS: BP 131/70
--- NOTE | 2019-11-27 07:22 | NUR ---
Opening Shift Note: Assumed care of patient, awake and alert. No S/S of distress/SOB or pain. Patient NPO at this time. Bed in lowest locked position, side rails up x 2, call light within reach. Patient instructed on POC and to call for assist PRN, will continue to monitor for changes Q1hr and PRN.
--- NOTE | 2019-11-27 08:09 | NUR ---
Patient off unit for HIDA scan.
[2019-11-27 08:37] VITALS: BP 137/82
[2019-11-27] MEDS ORDERED: MORPHINE SULF INJ 2 MG/ML SYRINGE 1ML IV ONE (09:00)
--- NOTE | 2019-11-27 10:01 | NUR ---
Patient back to unit.
[2019-11-27] MEDS: LEVOFLOXACIN 500MG 100 ML IV SCH (10:15)
[2019-11-27] MEDS: FAMOTIDINE (10MG/ML) 2ML VL IV SCH ×2 (10:15→22:00)
--- NOTE | 2019-11-27 12:46 | NUR ---
NUTRITION ASSESSMENT NOTES Please refer to link notes of nutrition screen form filed under the intervention section of the plan of care for further details. Est. Needs: 1400 kcal to 1850 kcal (15-20 kcal/kgBW), 57 gms to 68 gms pro (1.0-1.2 gms/kgIBW: 57 kg). Will continue to monitor pertinent labs and reassess nutrient need prn Thank you. Addendum: 11/27/19 at [address] Amended: Links added.
[2019-11-27 12:57] VITALS: BP 133/75
--- NOTE | 2019-11-27 15:22 | NUR ---
Right forearm became painful and swollen. IV insertion: IV access obtained, via clean sterile technique by inserting 20 gauge catheter at left wrist after 1 attempt. IV secured properly. No trauma to site. Patient tolerated well. Right forearm IV D/C, using clean sterile technique, catheter intact. Pressure dressing applied. Patient tolerated well. Will continue to monitor.
[2019-11-27 17:19] VITALS: BP 123/65
--- NOTE | 2019-11-27 19:19 | NUR ---
Closing note: Patient resting in bed, no S/S of pain, distress or SOB at this time. Care endorsed to NOC GISSELL BARCENAS
--- NOTE | 2019-11-27 19:50 | NUR ---
Opening Shift Note Assumed care of patient, awake, AAOx4. No S/S of distress/SOB or pain. On room air and ambulatory. Bed in lowest locked position, side rails up x2, call light within reach. Instructed on POC and to call for assist PRN, will continue to monitor for changes Q1hr and PRN.
[2019-11-27 21:57] VITALS: BP 120/72
[2019-11-28] MEDS: ALBUTEROL SULF 2.5 MG/0.5ML(0.5%) NEB SOLN NEB SCH ×3 (00:06→11:13)
[2019-11-28] MEDS: D5W/ SOD CHL 0.9%/KCL 20MEQ 1,000 ML IV SCH (02:33)
[2019-11-28 05:04] VITALS: BP 132/79
[2019-11-28] MEDS: metroNIDAZOLE 500MG/100ML 100 ML IV SCH (06:18)
--- NOTE | 2019-11-28 07:20 | NUR ---
Opening Shift Note Assumed care of patient, awake and alert. No S/S of distress/SOB or pain. Instructed on POC and to call for assist PRN, will continue to monitor for changes Q1hr and PRN. Bed locked in lowest position with two side rails and call light in reach.
[2019-11-28 08:00] VITALS: BP 139/71
[2019-11-28 09:00] VITALS: BP 139/71
[2019-11-28] MEDS ORDERED: LEVO-28 PO (09:54)
[2019-11-28] MEDS ORDERED: ONDA-144 PO (09:54)
[2019-11-28] MEDS ORDERED: METR500T14 PO (09:54)
[2019-11-28] MEDS: FAMOTIDINE (10MG/ML) 2ML VL IV SCH (09:56)
[2019-11-28] MEDS: LEVOFLOXACIN 500MG 100 ML IV SCH (09:56)
[2019-11-28 12:28] VITALS: BP 139/71
[2019-11-28 13:23] VITALS: BP 131/67
[2019-11-28 14:34] VITALS: BP 139/71
--- NOTE | 2019-11-28 15:00 | NUR ---
Discharge instructions given as ordered. Encourage to follow up with PMD as instructed. All questions and concerns addressed. Patient verbalized understanding. Medication reconciliation form completed and copy given to patient. No Home medications held in Pharmacy returned to patient, and no needed vaccines given. IV removed with catheter intact, pressure dressing applied, Patient ambulated to vehicle with all personal belongings, accompanied by family member. No distress noted at time of departure.
== END 2019-11-28 15:00 | disposition home or self-care (01) | DRG 446 ==
LOC: ER 05:11 → OVERFLOW 05:12 → CENTRAL 10:39
PROVIDERS: ADMIT Internal Medicine; ATTEND Internal Medicine
DX: K80.00 Calculus of gallbladder with acute cholecystitis without obstruction (principal); E66.01 Morbid (severe) obesity due to excess calories; J45.909 Unspecified asthma, uncomplicated; M47.817 Spondylosis without myelopathy or radiculopathy, lumbosacral region; E87.6 Hypokalemia; M51.37 Other intervertebral disc degeneration, lumbosacral region; Z82.3 Family history of stroke; Z82.49 Family history of ischemic heart disease and other diseases of the circulatory system; Z98.2 Presence of cerebrospinal fluid drainage device; Z83.3 Family history of diabetes mellitus; Z80.1 Family history of malignant neoplasm of trachea, bronchus and lung; Z68.31 Body mass index [BMI] 31.0-31.9, adult; Z88.0 Allergy status to penicillin; Z88.2 Allergy status to sulfonamides; Z88.8 Allergy status to other drugs, medicaments and biological substances
CPT/HCPCS: 36415; 71046; 74176; 76705; 78226; 80053; 81001; 82150; 83605; 83690; 83735; 84484; 85025; 85610; 85730; 87040; 87081; 93005; 94640; G0378; J1956; J2405; J3490

== ENCOUNTER → 2020-01-16 | Emergency (ER) | payer OTHER ==
[~2020-01-16] VITALS: Ht 165.1 cm; Wt 77.1 kg
[~2020-01-16] MED LIST changes: +ALBUTEROL SULF 2.5 MG/0.5ML(0.5%) NEB SOLN NEB ONE; +DOXYCYCLINE 100 MG TAB/CAP PO ONE; +IPRATROPIUM BROM 0.5 MG/2.5ML INH SOL NEB ONE; +LEVO-28 PO; +METR500T14 PO; +ONDA-144 PO; -PRED20TA2 PO; +cefTRIAXone SOD 1,000 MG VL IM ONE; +methylPREDNISolone SOD SUCC 125 MG/2 ML VL IM ONE
[2020-01-16 01:44] LABS: Basophils # (auto) 0.1 10 ^3/uL (0-0.2); Basophils % (auto) 0.7 % (0.0-2.0); Eosinophils # (auto) 0.2 10 ^3/uL (0-0.8); Eosinophils % (auto) 2.8 % (0.0-7.0); Hematocrit 36.1 % (36.0-46.0); Lymphocytes # (auto) 1.5 10 ^3/uL (0.4-5.4); Lymphocytes % (auto) 20.2 % (10.0-50.0); Mean Corpuscular Hemoglobin 28.1 pg (28.0-32.0); Mean Corpuscular Hgb Conc. 33.4 g/dL (32.0-36.0); Mean Corpuscular Volume 84.2 fL (80.0-100.0); Monocytes # (auto) 0.8 10 ^3/uL (0-1.3); Monocytes % (auto) 11.7 % (0.0-12.0); Neutrophils # (auto) 4.7 10 ^3/uL (1.6-8.6); Neutrophils % (auto) 64.6 % (37.0-80.0); Platelet Count (auto) 232 10^3/uL (140-450); Red Blood Cells 4.28 10^6/uL (4.0-5.20); Red Cell Distribution Width 19.6 % (11.8-14.3); White Blood Cell 7.2 10^3/uL (4.4-10.8)
[2020-01-16 02:03] LABS: Albumin 3.1 g/dL (3.4-5.0); Anion Gap 2 (5-15); Blood Urea Nitrogen 6 mg/dL (7-18); Calcium 8.2 mg/dL (8.5-10.1); Carbon Dioxide 31 mmol/L (21-32); Chloride 106 mmol/L (98-107); Glucose 95 mg/dL (74-106); Potassium 3.2 mmol/L (3.5-5.1); Sodium 139 mmol/L (136-145)
[2020-01-16 02:05] LABS: Alanine Aminotransferase 16 U/L (13-56); Aspartate Aminotransferase 6 U/L (15-37); BUN/Creatinine Ratio 6.5; GFR African American 82 mL/min; GFR Non-African American 68 mL/min
[2020-01-16 02:08] LABS: INR 1.05 (0.9-1.15); Partial Thromboplastin Time 27.1 sec (23.64-32.05)
[2020-01-16 02:21] LABS: Alkaline Phosphatase 57 U/L (45-117); Bilirubin, Total 0.2 mg/dL (0.2-1.0); Total Protein 7.2 g/dL (6.4-8.2)
[2020-01-16 03:42] VITALS: BP 153/79
== END | disposition home or self-care (01) ==
LOC: ER 00:51
DX: J45.901 Unspecified asthma with (acute) exacerbation (principal); Z90.89 Acquired absence of other organs
CPT/HCPCS: 36415; 71046; 80053; 83735; 83880; 84484; 85025; 85610; 85730; 93005; 94640; 96372; 99285; J2930; J7644

== ENCOUNTER 2020-01-30 13:36 | Emergency (ER) | payer OTHER ==
[~2020-01-30] VITALS: Ht 165.1 cm; Wt 86.2 kg
[~2020-01-30 13:36] MED LIST changes: -ALBUTEROL SULF 2.5 MG/0.5ML(0.5%) NEB SOLN NEB ONE; -DOXYCYCLINE 100 MG TAB/CAP PO ONE; -IPRATROPIUM BROM 0.5 MG/2.5ML INH SOL NEB ONE; -cefTRIAXone SOD 1,000 MG VL IM ONE; -methylPREDNISolone SOD SUCC 125 MG/2 ML VL IM ONE
[2020-01-30 14:39] VITALS: BP 148/71
[2020-01-30] MEDS ORDERED: IPRATROPIUM BROM 0.5 MG/2.5ML INH SOL NEB ONE (15:15)
[2020-01-30] MEDS ORDERED: ALBUTEROL SULF 2.5 MG/0.5ML(0.5%) NEB SOLN NEB ONE (15:15)
== END 2020-01-30 15:46 | disposition home or self-care (01) ==
LOC: ER 13:36
DX: J45.909 Unspecified asthma, uncomplicated (principal); Z76.0 Encounter for issue of repeat prescription; Z88.2 Allergy status to sulfonamides; Z88.6 Allergy status to analgesic agent; Z88.8 Allergy status to other drugs, medicaments and biological substances
CPT/HCPCS: 94640; 99283; J7644

== ENCOUNTER 2020-08-17 09:54 | Emergency (ER) | payer BC ==
[~2020-08-17] VITALS: Ht 165.1 cm; Wt 81.6 kg
[2020-08-17 10:20] VITALS: BP 108/73
== END 2020-08-17 13:57 | disposition home or self-care (01) ==
LOC: ER 09:54
DX: U07.1 COVID-19 (principal); J20.9 Acute bronchitis, unspecified; J21.9 Acute bronchiolitis, unspecified; Z90.49 Acquired absence of other specified parts of digestive tract
CPT/HCPCS: 36415; 71045; 87426

== ENCOUNTER 2022-09-27 10:39 | Emergency (ER) | payer BC ==
[~2022-09-27] VITALS: Ht 165.1 cm; Wt 91.0 kg
[2022-09-27 12:44] VITALS: BP 135/72
[2022-09-27] MEDS ORDERED: methylPREDNISolone SOD SUCC 125 MG/2 ML VL IM ONE (13:15)
[2022-09-27] MEDS ORDERED: PRED20TA2 PO (13:17)
== END 2022-09-27 13:58 | disposition home or self-care (01) ==
LOC: ER 10:39
DX: J33.9 Nasal polyp, unspecified (principal); J45.909 Unspecified asthma, uncomplicated; Z90.89 Acquired absence of other organs; Z88.2 Allergy status to sulfonamides; Z88.0 Allergy status to penicillin; Z88.6 Allergy status to analgesic agent
CPT/HCPCS: 71046; 96372; 99283; J2930